=== PATIENT | female | born 1940 | race Caucasian/White ===

== ENCOUNTER → 2024-08-15 09:43 | Outpatient (BNVA) | payer MEDICARE, OTHER, SELFPAY | PROVIDERS: Family Provider Family Medicine; Referring Provider Nurse Practitioner Family; Visit Provider Internal Medicine | DX: E03.9 Hypothyroidism, unspecified; T78.40XA Allergy, unspecified, initial encounter; E11.22 Type 2 diabetes mellitus with diabetic chronic kidney disease; N18.30 Chronic kidney disease, stage 3 unspecified; X58.XXXA Exposure to other specified factors, initial encounter; Z79.84 Long term (current) use of oral hypoglycemic drugs; Z79.890 Hormone replacement therapy | CPT/HCPCS: 99204 ==

== ENCOUNTER 2024-11-20 10:27 | Outpatient (CLI) | payer MEDICARE, SELFPAY ==
--- NOTE | 2024-11-20 10:36 | USR_ITS ---
PROCEDURE INFORMATION: Exam: US Bilateral Noninvasive Physiologic Study of the Lower Extremity Arteries, Limited Exam date and time: 11/20/2024 10:32 AM Age: 84 years old Clinical indication: Pain; Leg, upper; Bilateral; Additional info: Pad TECHNIQUE: Imaging protocol: Bilateral Limited bilateral noninvasive physiologic studies of lower extremity arteries. Waveforms were obtained and evaluated. Images were documented and archived. Exam is limited. COMPARISON: No relevant prior studies available. FINDINGS: Right Ankle-Brachial Index: 1.15. Left Ankle-Brachial Index: 1.15. US/CV ankle brachial index 72161 IMPRESSION: No evidence of stenosis or occlusion in the lower extremity.
== END 2024-11-20 10:28 | disposition home or self-care (01) ==
LOC: RAD 10:30
PROVIDERS: Family Provider Family Medicine; PCP Family Medicine; Visit Provider Family Medicine
DX: I73.9 Peripheral vascular disease, unspecified (principal)
CPT/HCPCS: 93922

== ENCOUNTER 2024-11-29 08:58 | Outpatient (CLI) | payer MEDICARE, SELFPAY ==
[2024-11-29 10:14] LABS: Estmated Average Glucose 143; Hemoglobin A1C 6.6 % (4.0-6.0)
[2024-11-29 10:19] LABS: Creatinine Urine, Random 83 mg/dL (28-217); Microalbum Creatinine Ratio Ur 24 mg/dL (0-20); Microalbumin Random Urine 2 ug/dL (0-20)
[2024-11-29 10:43] LABS: Alanine Aminotransferase 10 U/L (0-33); Albumin Level 4.1 g/dL (3.5-5.2); Alkaline Phosphatase 53 U/L (35-105); Anion Gap 14.2 (5-19); Aspartate Amino Transferase 20 U/L (0-32); Blood Urea Nitrogen 24 mg/dL (8-23); Calcium 9.7 mg/dL (8.5-10.5); Carbon Dioxide 28 mmol/L (22-29); Chloride 101 mmol/L (98-107); Chol HDL Ratio 3.89 mg/dL (0.0-4.40); Cholesterol 206 mg/dL (0-200); Free T4 Free Thyroxine 1.16 ng/dL (0.82-1.77); Globulin 3.1 g/dL (1.3-4.6); Glucose 119 mg/dL (65-115); HDL Cholesterol 53 mg/dL (60-100); LDL Cholesterol Calculated 123 mg/dL (50-129); LDL HDL Ratio 2.32 RATIO (0.00-3.22); Osmolality Calculated 291 mOsm/kg (285-295); Potassium 5.2 mmol/L (3.5-5.1); Sodium 138 mmol/L (136-145); Thyroid Stimulating Hormone 3.62 uIU/mL (0.27-4.20); Total Bilirubin 0.4 mg/dL (0.15-1.2); Total Protein 7.2 g/dL (6.6-8.7); Triglycerides 150 mg/dL (0-150)
== END 2024-11-29 08:59 | disposition home or self-care (01) ==
LOC: LAB 09:01
PROVIDERS: Family Provider Family Medicine; PCP Family Medicine; Visit Provider Internal Medicine
DX: E11.9 Type 2 diabetes mellitus without complications (principal)
CPT/HCPCS: 36415; 80053; 80061; 82044; 83036; 84439; 84443

== ENCOUNTER → 2024-12-05 09:45 | Outpatient (BNVA) | payer MEDICARE, SELFPAY | PROVIDERS: Family Provider Family Medicine; Visit Provider Internal Medicine | DX: E11.9 Type 2 diabetes mellitus without complications (principal); E03.9 Hypothyroidism, unspecified; T78.40XA Allergy, unspecified, initial encounter | CPT/HCPCS: 99214 ==

== ENCOUNTER → 2025-02-11 11:54 | Outpatient (BNVA) | payer MEDICARE, SELFPAY | PROVIDERS: Family Provider Family Medicine; Visit Provider Internal Medicine | DX: E11.9 Type 2 diabetes mellitus without complications (principal); E03.9 Hypothyroidism, unspecified | CPT/HCPCS: 99214 ==

== ENCOUNTER → 2025-02-26 09:50 | Outpatient (BNVA) | payer MEDICARE, SELFPAY | PROVIDERS: Family Provider Family Medicine; PCP Family Medicine; Visit Provider Podiatrist Foot & Ankle Surgery | DX: E11.42 Type 2 diabetes mellitus with diabetic polyneuropathy (principal); L60.3 Nail dystrophy; I73.9 Peripheral vascular disease, unspecified; Z79.84 Long term (current) use of oral hypoglycemic drugs | CPT/HCPCS: 11721; 99204 ==

== ENCOUNTER → 2025-05-02 10:27 | Outpatient (BNVA) | payer MEDICARE, SELFPAY | PROVIDERS: Family Provider Family Medicine; PCP Family Medicine; Visit Provider Podiatrist Foot & Ankle Surgery | DX: E11.42 Type 2 diabetes mellitus with diabetic polyneuropathy (principal); L60.3 Nail dystrophy; I73.9 Peripheral vascular disease, unspecified; Z79.84 Long term (current) use of oral hypoglycemic drugs | CPT/HCPCS: 11721 ==

== ENCOUNTER 2025-05-25 16:54 | Emergency (ER) | payer MEDICARE, SELFPAY ==
--- OUTSIDE RECORDS SUMMARY | 2024-06-27 09:20 | XMS_ITS | Continuity of Care Document ---
Author Organization [facility] Address [address] [place] [address] Phone Care Team Providers Care Radiator Tester Name Role Phone Lucio Carlton MD Unavailable Unavailable Allergies, Adverse Reactions, Alerts Substance Reaction Status Criticality No Known Allergies Active No Inform ation Medications Medication Instructions Dosage Effective Dates (start - stop) Status Comments meclizine 25 mg tablet - Act winnie alprazolam 0.25 mg tablet - Active pioglitazone 15 mg tablet - Active tramadol 50 mg tablet - Acti ve diphenoxylate-atropine 2.5 mg-0.025 mg tablet - Active rosuvastatin 10 mg tablet - Active lisinopril 20 mg tablet - Ac tive levothyroxine 50 mcg tablet - Active duloxetine 30 mg capsule,delayed release - Active Trulicity 1.5 mg/0.5 mL subcutaneous pen injector inject (1.5MG) by subcutaneous route every week 1.5 MG - Active metformin 500 mg tablet take 1 tablet by oral route 2 times every day with morning and evening meals 500 MG - Active Procedures Procedure Date OCT optic nerve E&M est low complexity Fundus photos Gonioscopy E&M est low complexity [place] Mask Visual field extensive examination(s) Ap OCT optic nerve Refraction Pachymetry E&M est moderate complexity OCT optic nerve Refraction E&M New moderate complexity Results Test Name Date and Time Measure Units Reference Range Abnormal Flag Status Comments Panel Description: Not Available Final Image OPT-RNFL & Asymmetry Analysis Single E 1 Panel Description: Not Available Final Image OPT-RNFL & Asymmetry Analysis Single E 2 Panel Description: Not Available Final Image OPT-RNFL Single Exam Report- 1 Advance Directives Directive Yes / No Effective Date File Name No Information Encounters Encounter Description Practice Location Reason(s) For Visit Diagnoses Date Provider Providers Copied on Encounter E&M est low complexity [facility], [address], [place], [id number] , [place] tel: [phone] CAITLYN Cortes OHTN (chief complaint) Ocular hypertension, bilateralMeibomian gland dysfunction right eye, upper and lower eyelidsMeibomian gland dysfunction left eye, upper and lower eyelids Oct-1 4 Brandt Valdes. [facility], [place], [id number] , [place]. tel: [phone] Referring Provider: Lucio Vivar, [address] [place] [address], [address] . tel:[phone] E&M est low complexity [facility], [address], [place], [id number] , [place] tel: [phone] CAITLYN [place] OHTN (chief complaint) Ocular hypertension, bilateral Apr-2 4 Brandt Valdes. [address], [place], [id number] , [place]. tel: [phone] Referring Provider: Lucio Vivar, [facility] [place], [address] . tel:[phone] [place] Mask [facility], [address], [place], [id number] , [place] tel: [phone] VF24-2 SF (chief complaint) Ocular hypertension, bilateral Apr-0 4 Brandt Valdes. [address], [place], [id number] , [place]. tel: [phone] Referring Provider: Lucio Vivar, [address] [place] [address], [id number] . tel:[phone] E&M est moderate complexity [facility], [address] [place] [address], [id number] , [place] tel: [phone] CAITLYN Cortes diabetic eye exam (chief complaint) Type 2 diabetes mellitus without complicationsOcula r hypertension, bilateralPresbyopi aLong term (current) use of oral hypoglycemic drugsKeratoconjunc tivitis sicca, not specified as Sjogren's, bilateralMeibomian gland dysfunction right eye, upper and lower eyelidsMeibomian gland dysfunction left eye, upper and lower eyelids Nov- 4 Brandt Valdes. [address], [place], [id number] , [place]. tel: [phone] Referring Provider: Lucio Vivar, [address] [place] [address], [address] . tel:[phone] E&M New moderate complexity [facility], [address] [place] [address], [id number] , [place] tel: [phone] CAITLYN Cortes Ocular hypertension (chief complaint)ruben betic eye exam (chief complaint)Be aters (chief complaint)Dry eyes (chief complaint) Ocular hypertension, bilateralKeratocon junctivitis sicca, not specified as Sjogren's, bilateralPuckering of macula, bilateralPresbyopi aType 2 diabetes mellitus without complicationsLong term (current) use of oral hypoglycemic drugs 3 Sharad Winchester. [address], [place], [id number] , [place]. tel: [phone] Referring Provider: Ranulfo Ribera, [address] [place] [address], [address] . tel:[phone] Family History Family Member Type Diagnosis Age At Onset No Information Immunizations Vaccine Date Status Comments Pneumo (2 yrs or older)(PPV) administered Source: Other Provider Payers Payer name Insurance type Covered alliance party ID Vannesa corral(susie Baldwin [facility] HMO Cap (TEA Premier) CI [id number] Social History Type Description Quantity Date Captured Comments Alcohol Use Details Unknown Caffeine Use Details Unknown Tobacco Use Status Current non-smoker Smoking Status Never smoker Sex Female Chief Complaint And Reason For Visit From encounter dated '06/27/2024 14:20'. OHTN (chief complaint). Description: The 83 year old patient presents for evaluation of OHTN in theOU. Pt is here today for FOL/RNFL. Pt states no changes in VA since last visit. Pt states BS has been stable. Reason For Referral Reason For Referral No Information History Of Present Illness Encounter Date Complaint History Of Prese nt Illness OHTN The 83 year old patient presents for evaluation of OHTN in the OU. Pt is here today for FOL/RNFL. Pt states no changes in VA since last visit. Pt states BS has been stable. OHTN The 83 year old patient presents for evaluation of OHTN in the OU. Pt is here today for FOL/IOP/FP DISC. Pt states she checks BS regularly and it is stable. Pt states VA OU is stable. Pt denies Pain or discomfort. Pt states no blurry VA. Pt reports she is not on any gtts. VF24-2 SF The 83 year old patient presents for evaluation of VF24-2 SF in the OU. diabetic eye exam The 83 year ol d patient presents for evaluation of diabetic eye exam / OHT/ macula pucker OU. Patient reports vision is stable both near and far. Denies: eye pain, or flashes. Floaters longstanding intermittent with no changes. She confirms taking Latanoprost QHS OU.Age (>70): + Race: CaucasianFamily Hx: Mother DM 2 Thin CCT (<500): 573 / 580Low DBP (<70): 120/70 ? av Sleep Apnea: none BMI > 40: Hx of Migraines: none Hx of glaucoma: OHNT x 12 yrs Dry eyes The patient is p resent for evaluation of Dry eyes in the OU. Pt states OU feel dry, gritty. Pt admits was told she has dry eyes and always feels something in her eyes/no tears. Ocular hypertension The patient is present for evaluation of Ocular hypertension in the OU. The symptom is constant. Patient denies: decrease in peripheral vision, eye pain and drop problems and is using correctly. Pt has been using Lat x 5 yrs in both eyes. Pt states VA is pretty good/clear, has no VA concerns, S/P yag OU.... Verbal order for RNFL OU. diabetic eye exam The patient is present for evaluation of diabetic eye exam in the OU. NIDDM, on meds x 20 yrs, LA1C was 6.5 about few wks ago, BS stays around 120. Floaters The patient is p resent for evaluation of Floaters in the OU. It started about 10 year(s) ago. It occurs 2 times a week. The symptom is frequent. The condition is not any better. Patient denies: flashes. Pt admits sees the floaters regularly. Functional Status Date Functional Assessmen t No Information Instructions Date Instruction Additional Infor alexandria Impression/Plan Related to Meibo eb gland dysfunction left eye, upper and lower eyelids Impression/Plan Related to Meibo eb gland dysfunction right eye, upper and lower eyelids Impression/Plan Related to Ocula r hypertension, bilateral Impression/Plan Related to Ocula r hypertension, bilateral RTO A/S with Dr. Carlton Related t o Ocular hypertension, bilateral Impression/Plan Related to Ocula r hypertension, bilateral Impression/Plan Related to Presb yopia Impression/Plan Related to Meibo eb gland dysfunction left eye, upper and lower eyelids Impression/Plan Related to Meibo eb gland dysfunction right eye, upper and lower eyelids Impression/Plan Related to Kerat oconjunctivitis sicca, not specified as Sjogren's, bilateral Impression/Plan Related to Ocula r hypertension, bilateral Impression/Plan Related to halfway (current) use of oral hypoglycemic drugs Impression/Plan Related to Type 2 diabetes mellitus without complications Return in 1 year CEE /RNFL with Dr. Orourke. 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 assessment Meibomian gland dysfunction righ t eye, upper and lower eyelids impression Meibomian gland dysf unction right eye, upper and lower eyelids: H02.88A. assessment Meibomian gland dysfunction left eye, upper and lower eyelids impression Meibomian gland dysf unction left eye, upper and lower eyelids: H02.88B. Patient Care Teams Name Effective Dates (start - stop) Status Members No Information
--- OUTSIDE RECORDS SUMMARY | 2025-05-25 16:59 | XMS_ITS | Encounter Summary ---
Author Organization [facility] Address [address] [place] [address] Care Team Providers Care Prototyper Name Role Phone Gigi Garza MD Primary Care Provider [phone] Encounter Details Date Type Department Care Team (Latest Contact Info) Description 01/31/2002 Outpatient Historical [facility] Medicine [address] [address] Colin Marquez DO NO ADDRESS ON FILE ACUTE URI NOS (Primary Dx); TENORIO'S PALSY Social History Tobacco Use Types Packs/Day Years Used Date Smoking Tobacco: Never Assessed Comments Unknown Sex and Gender Information Value Date Recorded Sex Assigned at Not on file Legal Sex Female 5:42 AM RADAR TESTER Gender Identity Not on file Sexual Orientation Not on file documented as of this encounter Plan of Treatment Not on file documented as of this encounter Visit Diagnoses Diagnosis Acute upper respiratory infections of unspecified site- Primary Tenorio's palsy documented in this encounter Additional Health Concerns Infection Onset Date Last Indicated Resolved Time R/O COVID-19 06/23/2020 06/23/2020 06/23/2020 1:54 PM CDT COVID-19 06/23/2020 06/23/2020 07/23/2020 8:08 PM RADAR TESTER documented as of this encounter Care Teams Prototyper Relationship Specialty Start Date End Date Gigi Garza MD [address] [address] PCP - General Family Practice 06/11/16 documented as of this encounter
--- OUTSIDE RECORDS SUMMARY | 2025-05-25 16:59 | XMS_ITS | Encounter Summary ---
Author Organization [facility] Address [address] [place] [address] Care Team Providers Care Assembler Plastic Boat Name Role Phone Gigi Garza MD Primary Care Provider [phone] Encounter Details Date Type Department Care Team (Late st Contact Info) Description 06/11/2013 Ancillary Orders [facility] Medicine [address] [address] Lorena Escobar MD [address] [address] Back pain (Primary Dx) Social History Tobacco Use Types Packs/Day Years Used Date Smoking Tobacco: Never Alcohol Use Standard Drinks/Week Comments No 0 (1 standard drink = 0.6 oz pur e alcohol) Comments No Sex and Gender Information Value Date Recorded Sex Assigned at Not on file Legal Sex Female 5:42 AM ORACLE HRMS CONSULTANT Gender Identity Not on file Sexual Orientation Not on file Occupation Industry Job Start Date Job End Date Not on file Not on file Not on file Not on file documented as of this encounter Plan of Treatment Not on file documented as of this encounter Results * XR THORACIC SPINE 3 VW (06/11/2013 4:00 PM CDT) Anatomical Region Laterality Modality Spine Computed Radiogr aphy 06/11/2013 3:54 PM CDT Narrative 06/12/2013 9:07 AM CDT PROCEDURE XR THORACIC SPINE, three views 11 June 2013 DESCRIPTION AP and lateral thoracic spine views and collimated lateral swimmer projection of the cervical thoracic junction show osteophyte at multiple levels throughout the thoracic spine, more pronounced on the right in the mid and lower dorsal levels. Pedicles and paraspinal lines are maintained and no wedged compression fracture of the spine is seen. There is mild aortic tortuosity noted. There are surgical clips in the right upper quadrant of the abdomen, likely status post cholecystectomy. The vertebral bodies are not optimally profiled on the swimmer view, however no loss of alignment is seen. IMPRESSION 1. osteoarthritis 2. no acute fracture or loss of alignment seen Procedure Note Raymond Pardo MD - 06/12/2013 PROCEDURE XR THORACIC SPINE, three views 11 June 2013 DESCRIPTION AP and lateral thoracic spine views and collimated lateral swimmer projection of the cervical thoracic junction show osteophyte at multiple levels throughout the thoracic spine, more pronounced on the right in the mid and lower dorsal levels. Pedicles and paraspinal lines are maintained and no wedged compression fracture of the spine is seen. There is mild aortic tortuosity noted. There are surgical clips in the right upper quadrant of the abdomen, likely status post cholecystectomy. The vertebral bodies are not optimally profiled on the swimmer view, however no loss of alignment is seen. IMPRESSION 1. osteoarthritis 2. no acute fracture or loss of alignment seen Lorena Escobar MD DIAGNOSTIC IMAGING ORDERABL ES Final Result documented in this encounter Visit Diagnoses Diagnosis Back pain Backache, unspecified Back pain- Primary Backache, unspecified documented in this encounter Additional Health Concerns Infection Onset Date Last Indicated Resolved Time R/O COVID-19 06/23/2020 06/23/2020 06/23/2020 1:54 PM CDT COVID-19 06/23/2020 06/23/2020 07/23/2020 8:08 PM ORACLE HRMS CONSULTANT documented as of this encounter Care Teams Assembler Plastic Boat Relationship Specialty Start Date End Date Gigi Garza MD [address] [facility] [address] [place] [address] PCP - General Family Practice 06/11/16 documented as of this encounter
--- OUTSIDE RECORDS SUMMARY | 2025-05-25 16:59 | XMS_ITS | Encounter Summary ---
Author Organization [facility] Address [address] [facility] Attn: Epic Prelude ADT NEL[place] SALGUERO [address] Care Team Providers Care Anesthesiology Technologist Name Role Phone Gigi Garza MD Primary Care Provider [phone] [phone] Encounter Details Date Type Department Care Team (Late st Contact Info) Description 04/09/2002 Outpatient Historical Colin Marquez DO NO ADDRESS ON FILE Social History Tobacco Use Types Packs/Day Years Used Date Smoking Tobacco: Never Assessed Comments Unknown Sex and Gender Information Value Date Recorded Sex Assigned at Not on file Legal Sex Female 5:42 AM LEAD CASHIER Gender Identity Not on file Sexual Orientation Not on file documented as of this encounter Plan of Treatment Not on file documented as of this encounter Visit Diagnoses Not on filedocumented in this encounter Additional Health Concerns Infection Onset Date Last Indicated Resolved Time R/O COVID-19 06/23/2020 06/23/2020 06/23/2020 1:54 PM CDT COVID-19 06/23/2020 06/23/2020 07/23/2020 8:08 PM LEAD CASHIER documented as of this encounter Care Teams Anesthesiology Technologist Relationship Specialty Start Date End Date Gigi Garza MD [address] [facility] [address] [place] [address] PCP - General Family Practice 06/11/16 documented as of this encounter
--- OUTSIDE RECORDS SUMMARY | 2025-05-25 16:59 | XMS_ITS | Encounter Summary ---
Author Organization [facility] Address [address] [place] [address] Care Team Providers Care French Cord Binder Name Role Phone Gigi Garza MD Primary Care Provider [phone] [phone] Encounter Details Date Type Department Care Team (Late Contact Info) Description 05/21/2025 External Device Data [facility] ABSTRACTION Provider, Abstract NO ADDRESS ON FILE Social History Tobacco Use Types Packs/Day Years Used Date Smoking Tobacco: Former Cigarettes Smokeless Tobacco: Never Comments:Quit smoking: Quit smoking in her 30's Alcohol Use Standard Drinks/Week Comments No 0 (1 standard drink = 0.6 oz pur e alcohol) Financial Resource Strain Answer Date R ecorded How hard is it for you to pa y for the very basics like food, housing, medical care, and heating? Not hard at all 04/07/2022 Food Insecurity Answer Date Recorded In the past 12 months, have you worried that your food would run out before you had money to buy more? Never true 04/07/2022 In the past 12 months, did y ou run out of food and didn't have money to buy more? Never true 04/07/2022 Transportation Needs Answer Date Record ed In the past 12 months, has l ack of transportation kept you from medical appointments or from getting medications? No 04/07/2022 Lack of Transportation (Non-Medical) Not on file 04/07/2022 Comments No Sex and Gender Information Value Date Recorded Sex Assigned at Not on file Legal Sex Female 1:34 PM FIRE RANGE TECHNICIAN Gender Identity Not on file Sexual Orientation Not on file documented as of this encounter Plan of Treatment Upcoming Encounters Date Type Department Care Team (Late Contact Info) Description 06/21/2025 10:40 AM CDT Office Visit [facility] [place] [address] [address] Gigi Garza MD [address] [address] documented as of this encounter Visit Diagnoses Not on filedocumented in this encounter Care Teams French Cord Binder Relationship Specialty Start Date End Date Gigi Garza MD [address] [address] PCP - General Family Practice 07/11/24 documented as of this encounter
--- OUTSIDE RECORDS SUMMARY | 2025-05-25 16:59 | XMS_ITS | Encounter Summary ---
Author Organization [facility] Address [address] [place] [address] Care Team Providers Care Assembly Lead Person Name Role Phone Gigi Garza MD Primary Care Provider + [phone] Encounter Details Date Type Department Care Team (Latest Contact Info) Description 05/19/2001 Outpatient Historical [facility] Family Medicine [place] [address] [address] Gurpreet Kelly MD [address] [address] Acute upper respiratory infections of unspecified site (Primary Dx) Social History Tobacco Use Types Packs/Day Years Used Date Smoking Tobacco: Never Assessed Comments Unknown Sex and Gender Information Value Date Recorded Sex Assigned at Not on file Legal Sex Female 5:42 AM TAX EXAMINING TECHNICIAN Gender Identity Not on file Sexual Orientation Not on file documented as of this encounter Plan of Treatment Not on file documented as of this encounter Visit Diagnoses Diagnosis Acute upper respiratory infections of unspecified site- Primary documented in this encounter Additional Health Concerns Infection Onset Date Last Indicated Resolved Time R/O COVID-19 06/23/2020 06/23/2020 06/23/2020 1:54 PM CDT COVID-19 06/23/2020 06/23/2020 07/23/2020 8:08 PM TAX EXAMINING TECHNICIAN documented as of this encounter Care Teams Assembly Lead Person Relationship Specialty Start Date End Date Gigi Garza MD [address] [facility] [address] [place] [address] PCP - General Family Practice 06/11/16 documented as of this encounter
--- OUTSIDE RECORDS SUMMARY | 2025-05-25 16:59 | XMS_ITS | Encounter Summary ---
Author Organization [facility] Address [address] [place] [address] Care Team Providers Care Aged Or Disabled Carer Name Role Phone Gigi Garza MD Primary Care Provider [phone] [phone] Encounter Details Date Type Department Care Team (Latest Contact Info) Description 08/13/2016 Ancillary Orders [facility] Orthopedics Orthopedic [facility] [address] [place] [address] Jose Guadalupe Green MD NO ADDRESS ON FILE Bicipital tendonitis of right shoulder Social History Tobacco Use Types Packs/Day Years Used Date Smoking Tobacco: Never Smokeless Tobacco: Never Alcohol Use Standard Drinks/Week Comments No 0 (1 standard drink = 0.6 oz pur e alcohol) Comments No Sex and Gender Information Value Date Recorded Sex Assigned at Not on file Legal Sex Female 5:42 AM CUSTOMER ACCOUNT REPRESENTATIVE Gender Identity Not on file Sexual Orientation Not on file Occupation Industry Job Start Date Job End Date Not on file Not on file Not on file Not on file documented as of this encounter Plan of Treatment Not on file documented as of this encounter Results * XR SHOULDER 2+ VW RIGHT (08/13/2016 9:11 AM CUSTOMER ACCOUNT REPRESENTATIVE) Anatomical Region Laterality Modality Upper Extremity Computed Radiogr aphy Narrative 08/19/2016 5:23 PM CUSTOMER ACCOUNT REPRESENTATIVE 3 view x-ray series right shoulder demonstrates narrowing of the subacromial space with moderate acromioclavicular joint space narrowing. Type II acromion on outlet view. Cortical hypertrophy at the deltoid insertion to the proximal right humerus on the AP view. us Jose Guadalupe Green MD DIAGNOSTIC IMAGING ORDERABLE S Final Result documented in this encounter Visit Diagnoses Diagnosis Bicipital tendonitis of right shoulder documented in this encounter Additional Health Concerns Infection Onset Date Last Indicated Resolved Time R/O COVID-19 06/23/2020 06/23/2020 06/23/2020 1:54 PM CDT COVID-19 06/23/2020 06/23/2020 07/23/2020 8:08 PM CUSTOMER ACCOUNT REPRESENTATIVE documented as of this encounter Care Teams Aged Or Disabled Carer Relationship Specialty Start Date End Date Gigi Garza MD [address] [address] PCP - General Family Practice 06/11/16 documented as of this encounter
--- OUTSIDE RECORDS SUMMARY | 2025-05-25 16:59 | XMS_ITS | Encounter Summary ---
Author Organization [facility] Address [address] [place] [address] Care Team Providers Care Direct Mail Clerk Name Role Phone Gigi Garza MD Primary Care Provider +1 [phone] Encounter Details Date Type Department Care Team (Latest Contact Info) Description 02/16/2017 Ancillary Orders [facility] Medicine [address] [address] Gigi Garza MD [address] [address] Primary osteoarthritis of right knee Social History Tobacco Use Types Packs/Day Years Used Date Smoking Tobacco: Never Smokeless Tobacco: Never Alcohol Use Standard Drinks/Week Comments No 0 (1 standard drink = 0.6 oz pur e alcohol) Comments No Sex and Gender Information Value Date Recorded Sex Assigned at Not on file Legal Sex Female 5:42 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 Exam: XR KNEE 3 VW BILAT Date/Time of Exam: 02/16/2017 3:52 PM Reason For Exam: Primary osteoarthritis of right knee. Findings: Markedly narrowed lateral joint compartments of both knees with moderate grade bony spurring of both knees most prominently demonstrated of right knee. No apparent acute osseous injury or subluxation of either knee. Soft tissues nonspecific. IMPRESSION: Advanced degenerative change of both knees, right greater than left. Narrative Procedure Note Jaqueline Elias MD - 02/17/2017 IMPRESSION IMPRESSION: Please see below. Exam: XR KNEE 3 VW BILAT Date/Time of Exam: 02/16/2017 3:52 PM Reason For Exam: Primary osteoarthritis of right knee. Findings: Markedly narrowed lateral joint compartments of both knees with moderate grade bony spurring of both knees most prominently demonstrated of right knee. No apparent acute osseous injury or subluxation of either knee. Soft tissues nonspecific. IMPRESSION: Advanced degenerative change of both knees, right greater than left. Gigi Garza MD DIAGNOSTIC IMAGING ORDERA BLES Final Result documented in this encounter Visit Diagnoses Diagnosis Primary osteoarthritis of right knee Primary localized osteoarthrosis, lower leg Primary osteoarthritis of right knee Primary localized osteoarthrosis, lower leg documented in this encounter Additional Health Concerns Infection Onset Date Last Indicated Resolved Time R/O COVID-19 06/23/2020 06/23/2020 06/23/2020 1:54 PM CDT COVID-19 06/23/2020 06/23/2020 07/23/2020 8:08 PM LAPPING MACHINE OPERATOR documented as of this encounter Care Teams Direct Mail Clerk Relationship Specialty Start Date End Date Gigi Garza MD [address] [phone] PCP - General Family Practice 06/11/16 documented as of this encounter
--- OUTSIDE RECORDS SUMMARY | 2025-05-25 16:59 | XMS_ITS | Encounter Summary ---
Author Organization [facility] Address [address] [place] [address] Care Team Providers Care Electrical Parts Reconditioner Name Role Phone Gigi Garza MD Primary Care Provider +1 [phone] Encounter Details Date Type Department Care Team (Latest Contact Info) Description 06/26/2001 Outpatient Historical [facility] [place] [address] [phone] Gurpreet Kelly MD [address] [address] Acute frontal sinusitis (Primary Dx); Acute bronchitis Social History Tobacco Use Types Packs/Day Years Used Date Smoking Tobacco: Never Assessed Comments Unknown Sex and Gender Information Value Date Recorded Sex Assigned at Not on file Legal Sex Female 5:42 AM CLINICAL ADMINISTRATOR Gender Identity Not on file Sexual Orientation Not on file documented as of this encounter Plan of Treatment Not on file documented as of this encounter Visit Diagnoses Diagnosis Acute frontal sinusitis- Primary Acute bronchitis documented in this encounter Additional Health Concerns Infection Onset Date Last Indicated Resolved Time R/O COVID-19 06/23/2020 06/23/2020 06/23/2020 1:54 PM CDT COVID-19 06/23/2020 06/23/2020 07/23/2020 8:08 PM CLINICAL ADMINISTRATOR documented as of this encounter Care Teams Electrical Parts Reconditioner Relationship Specialty Start Date End Date Gigi Garza MD [address] [phone] PCP - General Family Practice 06/11/16 documented as of this encounter
--- OUTSIDE RECORDS SUMMARY | 2025-05-25 16:59 | XMS_ITS | Encounter Summary ---
Author Organization [facility] Address [address] [place] [address] Care Team Providers Care Director Of Scientific Research Name Role Phone Gigi Garza MD Primary Care Provider +1 [phone] Reason for Referral * Outpatient Services (Routine) - Closed Specialty Diagnoses / Procedures Referred By Miguel Ángel perez Referred To Contact Diagnoses Screening mammogram Procedures MAMMO SCREENING BILAT Alejo Mathur MD NO ADDRESS ON FILE Referral ID Status Reason Start Date Expiration Date Visits Re quested Visits Authorized [id number] Closed 08/24/2010 02/20/2011 1 1 LE CONTROL CHENILLER Encounter Details Date Type Department Care Team (Late st Contact Info) Description 08/24/2010 Ancillary Orders [facility] Imaging External Read [address] [place] [address] Alejo Mathur MD NO ADDRESS ON FILE Screening mammogram Social History Tobacco Use Types Packs/Day Years Used Date Smoking Tobacco: Never Alcohol Use Standard Drinks/Week Comments No 0 (1 standard drink = 0.6 oz pur e alcohol) Comments No Sex and Gender Information Value Date Recorded Sex Assigned at Not on file Legal Sex Female 5:42 AM NEEDLE CONTROL CHENILLER Gender Identity Not on file Sexual Orientation Not on file documented as of this encounter Plan of Treatment Not on file documented as of this encounter Results * MAMMO SCREENING BILAT (08/24/2010 1:58 PM NEEDLE CONTROL CHENILLER) Anatomical Region Laterality Modality Breast Bilateral Mammography Addenda Addendum by Saadia Gallo MD on 09/15/2010 8:04 AM NEEDLE CONTROL CHENILLER ADDENDUM TO SCREENING MAMMOGRAM OF 08/20/10: We now have the patient's prior exams and multiple prior exams dating back to 09/09/06 were compared with the screening study of 08/20/10. The asymmetric tissue and calcifications, bilaterally, appear to be stable. Yearly exams are recommended. *Addendum dictated on 09/14/10 ANDRZEJ/cathie Narrative 09/01/2010 8:44 AM NEEDLE CONTROL CHENILLER BILATERAL SCREENING MAMMOGRAM WITH CAD: No family history of breast cancer and no breast complaints. The patient has had previous films two years ago in [place], [place]. She had an excisional biopsy on the left in 1984 which was benign, and that was marked with a scar marker. Small amount of tissue is present bilaterally with areas of scattered benign-type calcifications and benign-type nodularity. This mammogram was also analyzed by the Computer Aided Detection System (CAD), R2 ImageChecker, Version 3.1. SUMMARY: While there are no suspicious-appearing findings on this study, it would be reasonable to attempt to obtain the patient's prior films for comparison purposes. An addendum would be issued. MAJOR/hector Procedure Note Vance Mcdonald MD / Saadia Gallo MD - 09/15/2010 BILATERAL SCREENING MAMMOGRAM WITH CAD: No family history of breast cancer and no breast complaints. The patienthas had previous films two years ago in [place], [place]. She had anexcisional biopsy on the left in 1984 which was benign, and that wasmarked with a scar marker. Small amount of tissue is present bilaterally with areas of scatteredbenign-type calcifications and benign-type nodularity. This mammogram was also analyzed by the Computer Aided Detection System(CAD), R2 ImageChecker, Version 3.1. SUMMARY: While there are no suspicious-appearing findings on this study, it wouldbe reasonable to attempt to obtain the patient's prior films forcomparison purposes. An addendum would be issued. MAJOR/hector us Alejo Mathur MD MAMMO ORDERABLES Edited Re sult - Final documented in this encounter Visit Diagnoses Diagnosis Screening mammogram Other screening mammogram documented in this encounter Additional Health Concerns Infection Onset Date Last Indicated Resolved Time R/O COVID-19 06/23/2020 06/23/2020 06/23/2020 1:54 PM CDT COVID-19 06/23/2020 06/23/2020 07/23/2020 8:08 PM NEEDLE CONTROL CHENILLER documented as of this encounter Care Teams Director Of Scientific Research Relationship Specialty Start Date End Date Gigi Garza MD [address] [phone] PCP - General Family Practice 06/11/16 documented as of this encounter
--- OUTSIDE RECORDS SUMMARY | 2025-05-25 16:59 | XMS_ITS | Encounter Summary ---
Author Organization [facility] Address [address] [place] [address] Care Team Providers Care Servicenow Administrator Developer Name Role Phone Gigi Garza MD Primary Care Provider [phone] [phone] Encounter Details Date Type Department Care Team (Latest Contact Info) Description 03/21/2002 Outpatient Historical [address] [address] Colin Marquez DO NO ADDRESS ON FILE DISACCHARIDASE DEF/MALAB (Primary Dx); HYPERLIPIDEMIA NEC/NOS Social History Tobacco Use Types Packs/Day Years Used Date Smoking Tobacco: Never Assessed Comments Unknown Sex and Gender Information Value Date Recorded Sex Assigned at Not on file 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 Sex Female 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 CLERK Gender Identity Not on file Sexual Orientation Not on file documented as of this encounter Plan of Treatment Not on file documented as of this encounter Visit Diagnoses Diagnosis 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
--- OUTSIDE RECORDS SUMMARY | 2025-05-25 16:59 | XMS_ITS | Encounter Summary ---
Author Organization [facility] Address [address] [place] [address] Care Team Providers Care Rewinder Name Role Phone Gigi Garza MD Primary Care Provider [phone] [phone] Reason for Referral * Outpatient Services (Routine) - Closed Specialty Diagnoses / Procedures Referred By Contac t Referred To Contact Radiology Diagnoses Other screening mammogram Procedures MAMMO DIGITIZED STUDY Alejo Mathur MD NO ADDRESS ON FILE [facility] [address] [facility] [address] [place] [address] Phone: tel: fax: Referral ID Status Reason Start Date Expiration Date Visits Re quested Visits Authorized [id number] Closed 09/13/2012 10/14/2013 1 1 APPLICATIONS MANAGER Encounter Details Date Type Department Care Team (Late st Contact Info) Description 09/13/2012 Ancillary Orders [facility] [place] 104 [facility] [address] [place] [address] Alejo Mathur MD NO ADDRESS ON FILE Breast CA Screening Social History Tobacco Use Types Packs/Day Years Used Date Smoking Tobacco: Never Alcohol Use Standard Drinks/Week Comments No 0 (1 standard drink = 0.6 oz pur e alcohol) Comments No Sex and Gender Information Value Date Recorded Sex Assigned at Not on file Legal Sex Female 5:42 AM CASH APPLICATIONS MANAGER Gender Identity Not on file Sexual Orientation Not on file documented as of this encounter Plan of Treatment Not on file documented as of this encounter Results * MAMMO DIGITIZED STUDY (09/09/2006 2:59 PM CASH APPLICATIONS MANAGER) Narrative Cynthia Dumont, RT - 09/13/2012 2:59 PM CASH APPLICATIONS MANAGER Order information only. Exam was auto-finalized. Procedure Note Cynthia Dumont, RT - 09/13/2012 Order information only. Exam was auto-finalized. Alejo Mathur MD DIAGNOSTIC IMAGING ORDERAB LES Final Result documented in this encounter Visit Diagnoses Diagnosis Breast CA Screening Other screening mammogram Breast CA Screening Other screening mammogram documented in this encounter Additional Health Concerns Infection Onset Date Last Indicated Resolved Time R/O COVID-19 06/23/2020 06/23/2020 06/23/2020 1:54 PM CDT COVID-19 06/23/2020 06/23/2020 07/23/2020 8:08 PM CASH APPLICATIONS MANAGER documented as of this encounter Care Teams Rewinder Relationship Specialty Start Date End Date Gigi Garza MD [address] [facility] [address] [place] [phone] PCP - General Family Practice 06/11/16 documented as of this encounter
--- OUTSIDE RECORDS SUMMARY | 2025-05-25 16:59 | XMS_ITS | Encounter Summary ---
Author Organization [facility] Address [address] [place] [address] Care Team Providers Care Rn Registry Name Role Phone Gigi Garza MD Primary Care Provider [phone] [phone] Encounter Details Date Type Department Care Team (Latest Contact Info) Description 01/19/2002 Outpatient Historical [facility] Medicine [address] [address] Colin Marquez DO NO ADDRESS ON FILE HEADACHE (Primary Dx); Skin sensation disturb; ANXIETY STATE NOS Social History Tobacco Use Types Packs/Day Years Used Date Smoking Tobacco: Never Assessed Comments Unknown Sex and Gender Information Value Date Recorded Sex Assigned at Not on file Legal Sex Female 5:42 AM 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 Gender Identity Not on file Sexual Orientation Not on file documented as of this encounter Plan of Treatment Not on file documented as of this encounter Visit Diagnoses Diagnosis Headache(784.0)- Primary Headache Skin sensation disturb Disturbance of skin sensation Anxiety state, unspecified documented in this encounter Additional Health Concerns Infection Onset Date Last Indicated Resolved Time R/O COVID-19 06/23/2020 06/23/2020 06/23/2020 1:54 PM CDT COVID-19 06/23/2020 06/23/2020 07/23/2020 8:08 PM 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 MACHINE OPERATOR documented as of this encounter Care Teams Rn Registry Relationship Specialty Start Date End Date Gigi Garza MD [address] [phone] PCP - General Family Practice 06/11/16 documented as of this encounter
--- OUTSIDE RECORDS SUMMARY | 2025-05-25 16:59 | XMS_ITS | Encounter Summary ---
Author Organization [facility] Address [address] [place] [address] Care Team Providers Care Babcock Tester Name Role Phone Gigi Garza MD Primary Care Provider +1 [phone] Encounter Details Date Type Department Care Team (Latest Contact Info) Description 04/04/2002 Outpatient Historical [facility] Medicine [address] [address] Colin Marquez DO NO ADDRESS ON FILE CHEST PAIN NOS (Primary Dx); Pain in limb; HYPERLIPIDEMIA NEC/NOS Social History Tobacco Use Types Packs/Day Years Used Date Smoking Tobacco: Never Assessed Comments Unknown Sex and Gender Information Value Date Recorded Sex Assigned at Not on file Legal Sex Female 5:42 AM CHEMICAL DETECTION EXPERT Gender Identity Not on file Sexual Orientation Not on file documented as of this encounter Plan of Treatment Not on file documented as of this encounter Visit Diagnoses Diagnosis Chest pain, unspecified- Primary Pain in limb Pain in soft tissues of limb Other and unspecified hyperlipidemia documented in this encounter Additional Health Concerns Infection Onset Date Last Indicated Resolved Time R/O COVID-19 06/23/2020 06/23/2020 06/23/2020 1:54 PM CDT COVID-19 06/23/2020 06/23/2020 07/23/2020 8:08 PM CHEMICAL DETECTION EXPERT documented as of this encounter Care Teams Babcock Tester Relationship Specialty Start Date End Date Gigi Garza MD [address] [phone] PCP - General Family Practice 06/11/16 documented as of this encounter
--- OUTSIDE RECORDS SUMMARY | 2025-05-25 16:59 | XMS_ITS | Encounter Summary ---
Author Organization [facility] Address [address] [place] [address] Care Team Providers Care Cabin Crew Name Role Phone Gigi Garza MD Primary Care Provider +1 [phone] Encounter Details Date Type Department Care Team (Latest Contact Info) Description 06/16/2001 Outpatient Historical [facility] Medicine [address] [address] Fozia Holland MD NO ADDRESS ON FILE Acute bronchitis (Primary Dx) Social History Tobacco Use Types Packs/Day Years Used Date Smoking Tobacco: Never Assessed Comments Unknown Sex and Gender Information Value Date Recorded Sex Assigned at Not on file Legal Sex Female 5:42 AM CARBIDE OPERATOR Gender Identity Not on file Sexual Orientation Not on file documented as of this encounter Plan of Treatment Not on file documented as of this encounter Visit Diagnoses Diagnosis Acute bronchitis- Primary documented in this encounter Additional Health Concerns Infection Onset Date Last Indicated Resolved Time R/O COVID-19 06/23/2020 06/23/2020 06/23/2020 1:54 PM CDT COVID-19 06/23/2020 06/23/2020 07/23/2020 8:08 PM CARBIDE OPERATOR documented as of this encounter Care Teams Cabin Crew Relationship Specialty Start Date End Date Gigi Garza MD [address] [phone] PCP - General Family Practice 06/11/16 documented as of this encounter
--- OUTSIDE RECORDS SUMMARY | 2025-05-25 16:59 | XMS_ITS | Encounter Summary ---
Author Organization [facility] Address [address] [place] [address] Care Team Providers Care Sign Builder Supervisor Name Role Phone Gigi Garza MD Primary Care Provider +1 -[phone] Encounter Details Date Type Department Care Team (Latest Contact Info) Description 04/25/2002 Outpatient Historical [facility] Medicine [place] [address] [address] Colin Marquez DO NO ADDRESS ON FILE HYPERTENSION NOS (Primary Dx); DIABETES UNCOMPL ADULT-TYPE II ([facility]) Social History Tobacco Use Types Packs/Day Years Used Date Smoking Tobacco: Never Assessed Comments Unknown Sex and Gender Information Value Date Recorded Sex Assigned at Not on file Legal Sex Female 5:42 AM SALESPERSON FLORIST SUPPLIES Gender Identity Not on file Sexual Orientation Not on file documented as of this encounter Plan of Treatment Not on file documented as of this encounter Visit Diagnoses Diagnosis Unspecified essential hypertension- Primary Type II or unspecified type diabetes mellitus without mention of complication, not stated as uncontrolled documented in this encounter Additional Health Concerns Infection Onset Date Last Indicated Resolved Time R/O COVID-19 06/23/2020 06/23/2020 06/23/2020 1:54 PM CDT COVID-19 06/23/2020 06/23/2020 07/23/2020 8:08 PM SALESPERSON FLORIST SUPPLIES documented as of this encounter Care Teams Sign Builder Supervisor Relationship Specialty Start Date End Date Gigi Garza MD [address] [phone] PCP - General Family Practice 06/11/16 documented as of this encounter
--- OUTSIDE RECORDS SUMMARY | 2025-05-25 16:59 | XMS_ITS | Encounter Summary ---
Author Organization [facility] Address [address] [place] [address] Care Team Providers Care Mobile Home Lot Utility Worker Name Role Phone Gigi Garza MD Primary Care Provider +1 [phone] Encounter Details Date Type Department Care Team (Latest Contact Info) Description 02/09/2002 Outpatient Historical [facility] Medicine [address] [address] Colin Marquez DO NO ADDRESS ON FILE TENORIO'S PALSY (Primary Dx); Skin sensation disturb; OTALGIA NOS Social History Tobacco Use Types Packs/Day Years Used Date Smoking Tobacco: Never Assessed Comments Unknown Sex and Gender Information Value Date Recorded Sex Assigned at Not on file Legal Sex Female 5:42 AM TURNING LATHE TENDER Gender Identity Not on file Sexual Orientation Not on file documented as of this encounter Plan of Treatment Not on file documented as of this encounter Visit Diagnoses Diagnosis Tenorio's palsy- Primary Skin sensation disturb Disturbance of skin sensation Otalgia, unspecified documented in this encounter Additional Health Concerns Infection Onset Date Last Indicated Resolved Time R/O COVID-19 06/23/2020 06/23/2020 06/23/2020 1:54 PM CDT COVID-19 06/23/2020 06/23/2020 07/23/2020 8:08 PM TURNING LATHE TENDER documented as of this encounter Care Teams Mobile Home Lot Utility Worker Relationship Specialty Start Date End Date Gigi Garza MD [address] [phone] PCP - General Family Practice 06/11/16 documented as of this encounter
--- OUTSIDE RECORDS SUMMARY | 2025-05-25 16:59 | XMS_ITS | Clinical Summary ---
Author Organization [facility] Address [address] 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 acidophilus/L. rhamnosus (PROBIOTIC ORAL) Take 1 Capsule by mouth daily. 06/22/20 19 Active chwkxjf-iwxq-aasd i-djyv-fypiyh 100 mg-150 mg- 50 mg-150 mg Capsule Take by mouth. 03/06/20 21 Active Fish Oil-[place]-3 Fatty Acids 300-500 mg Capsule Take by mouth daily. 03/06/20 21 Active cetirizine (ZyrTEC) 10 mg tablet Take 10 mg by mouth daily. 12/21/19 18 Active MULTIVITAMIN ORAL Take 1 Tab by mouth daily. 12/18/19 15 Active Cholecalciferol, Vitamin D3, 50 mcg (2,000 unit) Capsule Take 100 mcg by mouth daily. Active Cinnamon Bark 500 mg Capsule Take 1 Capsule by mouth daily. Active zinc sulfate 50 mg zinc (220 mg) capsule Take 50 mg by mouth daily. Active dulaglutide (TRULICITY) 1.5 mg/0.5 mL injectionIndicati ons:Type 2 diabetes mellitus with stage 3 chronic kidney disease, without long-term current use of insulin (CMS/HCC),Type 2 diabetes mellitus with hyperglycemia, without long-term current use of insulin (CMS/[facility]) Inject 0.5 mL (1.5 mg) by subcutaneous injection every 7 days. 6 mL 3 07/11/20 24 Active conjugated estrogens (PREMARIN) 0.625 mg/gram vaginal creamIndications: Atrophic vaginitis INSERT 1 GRAM INTRAVAGINALLY ONCE WEEKLY 30 Gram 5 08/15/20 24 Active metFORMIN (GLUCOPHAGE XR) 500 mg Extended Release 24 hour tabletIndications :Type 2 diabetes mellitus with diabetic polyneuropathy, without long-term current use of insulin (CMS/HCC) Take 1 Tablet (500 mg) by mouth daily with breakfast. 100 Tablet 3 08/15/20 24 Active FreeStyle Tommy 3 Sensor DeviceIndications :Type 2 diabetes mellitus with stage 3b chronic kidney disease, without long-term current use of insulin (CMS/HCC) 1 Each by Other route every 2 weeks. 6 Each 1 08/21/20 24 Active aspirin (ECOTRIN EC) 81 mg Tablet, Delayed Release (E.C.) Take 81 mg by mouth daily. Active ubidecarenone/vit sutton E mixed (COQ10 SG 100 ORAL) Take 1 Tablet by mouth every 24 hours. Active multivitamin with folic acid 400 mcg Tablet tablet Take 1 Tablet by mouth daily. Active naloxone (NARCAN) 4 mg/spray [place], Non-Aerosol EMERGENCY USE ONLY: Administer 1 spray (4 mg) in one nostril one time. May repeat in alternating nostrils every 2-3 min until responsive or EMS arrives. 1 Each 09/18/19 25 Active rosuvastatin (CRESTOR) 5 mg tabletIndications :Type 2 diabetes mellitus with diabetic polyneuropathy, without long-term current use of insulin (CMS/HCC),Mixed hyperlipidemia Take 1 Tablet (5 mg) by mouth every Tuesday, Tuesday, and Tuesday. Dose reduction 40 Tablet 3 09/19/19 25 Active metoprolol succinate (TOPROL XL) 25 mg Extended Release 24 hour tabletIndications :HTN (hypertension), benign Take 1 Tablet (25 mg) by mouth daily. 100 Tablet 3 09/18/19 25 Active lisinopriL (PRINIVIL) 20 mg tabletIndications :Type 2 diabetes mellitus with diabetic polyneuropathy, without long-term current use of insulin (CMS/HCC),Type 2 diabetes mellitus with stage 3b chronic kidney disease, without long-term current use of insulin (CMS/HCC),HTN (hypertension), benign Take 1 Tablet (20 mg) by mouth daily. 100 Tablet 3 09/18/19 25 Active levothyroxine 50 mcg tabletIndications :Acquired hypothyroidism Take 1 Tablet (50 mcg) by mouth daily. 100 Tablet 3 09/18/19 25 Active DULoxetine (CYMBALTA) 30 mg Capsule, Delayed Release(E.C.)Mallory cations:Type 2 diabetes mellitus with diabetic polyneuropathy, without long-term current use of insulin ([facility]),RASHMI (generalized anxiety disorder) Take 1 Capsule (30 mg) by mouth daily. 90 Capsule 3 09/18/19 25 Active nystatin (MYCOSTATIN) 100,000 unit/gram Cream APPLY TO AFFECTED AREA(S) TOPICALLY TWICE DAILY FOR 7 TO 10 DAYS UNTIL CLEAR 30 Gram 2 04/08/20 25 Active ALPRAZolam (XANAX) 0.25 mg tabletIndications :RASHMI (generalized anxiety disorder) Take 1 Tablet (0.25 mg) by mouth 3 times daily as needed for Anxiety. 270 Tablet 04/29/20 25 Active traMADol (ULTRAM) 50 mg tabletIndications :Primary osteoarthritis of both knees,Status post total right knee replacement,Chron ic pain of right knee Take 1 Tablet (50 mg) by mouth 2 times daily as needed for Pain, Moderate. 60 Tablet 2 05/01/20 25 Active diphenoxylate-atr opine 2.5 mg-0.025 mg tabletIndications :Irritable bowel syndrome without diarrhea Take 1 Tablet by mouth 1 time daily as needed for Diarrhea/Loose Stools. 90 Tablet 1 05/03/20 25 Active diphenoxylate-atr opine 2.5 mg-0.025 mg tabletIndications :Irritable bowel syndrome without diarrhea Take 1 Tablet by mouth 1 time daily as needed for Diarrhea/Loose Stools. 90 Tablet 1 08/31/20 24 2024 Discontin ued(Reord er) traMADoL (ULTRAM) 50 mg tabletIndications :Primary osteoarthritis of both knees,Status post total right knee replacement,Chron ic pain of right knee Take 1 Tablet (50 mg) by mouth 2 times daily as needed for Pain, Moderate. 60 Tablet 2 09/18/19 25 2024 Discontin ued(Reord er) ALPRAZolam (XANAX) 0.25 mg tabletIndications :RASHMI (generalized anxiety disorder) Take 1 Tablet (0.25 mg) by mouth 3 times daily as needed for Anxiety. 270 Tablet 10/26/19 25 2024 Discontin ued(Reord er) cephALEXin (KEFLEX) 500 mg capsule Take 1 Capsule (500 mg) by mouth 3 times daily for 7 days. Take at onset of UTI symptoms 21 Capsule 04/19/20 25 2024 cephALEXin (KEFLEX) 500 mg capsule Take 1 Capsule (500 mg) by mouth 3 times daily for 7 days. 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 History of colon polyps 10/22/2015 Overview (01/08/2021): Colon polyps removed at colonoscopy. Pathology pending Internal hemorrhoids without complication 2015 Type 2 diabetes mellitus wit h stage 3b chronic kidney disease, without long-term current use of insulin 09/26/2015 Atrophic vaginitis 08/13/2015 H/O cancer of gall bladder, S/P Cholecystectomy 02/19/2013 Dupuytren's contracture of hand 09/17/2010 RASHMI (generalized anxiety disorder) 03/14/2009 Microalbuminuria, 01/1801/30/2009 Overview (01/08/2021): On Lisinopril 40 HTN (hypertension), benign 01/29/2009 Hyperlipidemia 01/29/2009 Overview (01/08/2021): LDL: 105 (02/22); 73 (01/21); 97 (01/20); 93 (04/21); 123 (09/20) HDL: 42 (02/22); 42 (01/21); 48 (01/20); 47 (04/21); 54 (09/20) Hypothyroidism 01/29/2009 Overview (01/08/2021): TSH: 02/22; 01/21; 01/20; 10/22; 09/20 Gastroesophageal reflux disease Type 2 diabetes mellitus wit h diabetic polyneuropathy, without long-term current use of insulin Overview (01/08/2021): A1C: 7.3 (02/22); 6.7 (10/25); 7.2 (10/24); 8.2 (05/23); 7.6 (01/20); 7.4 (08/21); 7.2 (04/21); 7.0 (10/22); 7.3 (07/21); 6.7 (04/20); 6.7 (01/18); 6.6 (09/20) Microalbumin: 10/25 (normal); 05/23 (normal); 04/21 (positive); 01/18 (Positive) Retinal exam: 04/23; 12/21 (normal); 11/18 (Normal); Dr. Saab/Danilo ([facility]) Chronic pain of right knee Resolved Problems Problem Noted Date Diagnosed Date Resolved Date Preoperative general physical examination 06/26/2019 08/03/2019 Anemia 06/26/2019 08/03/2019 Hyponatremia 06/26/2019 08/03/2019 Type 2 diabetes mellitus wit h hyperglycemia, without long-term current use of insulin 12/25/2018 04/20/2022 Right rotator cuff tendinitis 11/22/2016 06/05/2018 Bicipital tendonitis of right shoulder 07/19/2016 06/05/2018 Type 2 diabetes with stage 3 chronic kidney disease GFR 30-59 11/14/2015 11/22/2016 Hyperlipidemia 11/14/2015 11/22/2016 Stage 3 chronic kidney disease 09/26/2015 08/17/2021 Diabetic neuropathy 06/09/2011 03/06/20 21 Colon cancer screening 02/05/201111/22 Overview (01/07/2021): Colonoscopy: around 2005 (no polyps per patient, in [place]) Osteoporosis screening 08/19/201011/22 Overview (01/07/2021): BMD: 11/22 (normal); 2007 (Normal per patient) Breast CA Screening 01/29/2009 11/23/19 17 Overview (01/07/2021): Mammo: 09/24; 08/22; 08/21; 10/21 Encounters Date Type Department Care Team Description 05/21/2025 External Device Data [facility] ABSTRACTION Provider, Abstract 05/07/[address] [address] Gigi Garza MD Medication Refill; Patient Communication 05/03/[address] [address] Gigi Garza MD Irritable bowel syndrome without diarrhea 05/01/[address] [address] Gigi Garza MD Primary osteoarthritis of both knees; Status post total right knee replacement; Chronic pain of right knee 04/30/2025 Orders Only [address] [place] [address] Gigi Garza MD Type 2 diabetes mellitus with stage 3b chronic kidney disease, without long-term current use of insulin ([facility]) (Primary Dx) 04/29/[address] [address] Gigi Garza MD Needs Orders Written 04/29/[address] [address] Gigi Garza MD RASHMI (generalized anxiety disorder) 04/19/[address] [address] Gigi Garza MD Medication Question 04/08/2025 Refill [facility] [address] [facility] [address] [place] [address] Vernell, Sarah Jackson, DEVORA 03/27/2025 External Device Data [facility] ABSTRACTION Provider, Abstract 03/26/2025 External Device Data [facility] ABSTRACTION Provider, Abstract 02/26/2025 External Device Data [facility] ABSTRACTION Provider, Abstract from Last 3 Months Immunizations Immunization Administration Dates Next Due (PNEUMOVAX 23)(50 YRS UP) PN EUMOCOCCAL POLYSACCHARIDE (PPV23) 0.5 ML, IM 06/16/2009 (SHINGRIX)(50 YRS UP) ZOSTER VACCINE RECOMBINANT, 0.5 ML, IM 11/30/2018,09/24/2018 INFLUENZA VACCINE HIGH DOSE QUADRIVALENT 65 YR UP PF IM 07/22/2020 Influenza Seasonal Unspecifi ed Formulation IM 06/08/2019,06/21/2012,06/25/2010 Influenza Vaccine High Dose 65+ Yrs IM 0 05/25/2018,06/21/2017,06/11/2016,06/13,06/25/2014 Influenza Vaccine Split 3+ Yrs IM 06/16/2009 Influenza Vaccine Split 3+ Yrs PF IM 06/18/2013, 06/11/2013,06/09/2011 Influenza Vaccine Tri Adjuva nted 65+ PF IM 06/08/2019 Pneumococcal conjugate, unsp ecified formulation 09/12/2003 Family History Medical History Relation Name Comments Lung Cancer Brother Zane Diabetes Daughter 1 Angie Healthy Daughter 2 Lesly Diabetes Daughter 3 Farnaz No Known Problems Father Diabetes Mother Arthritis-osteo Sister 1 Alexandra No Known Problems Sister 2 Diamond Arthritis-osteo Sister 3 Krupa Hypertension Sister 3 Krupa Relation Name Status Comments Brother Zane Daughter 1 Angie Alive Daughter 2 Lesly Alive Daughter 3 Farnaz Alive Father (Age 98) Mother (Age 72) Hit by a c ar Sister 1 Alexandra Alive Sister 2 Diamond Alive Sister 3 Krupa Social History Tobacco Use Types Packs/Day Years Used Date Smoking Tobacco: Former Cigarettes Smokeless Tobacco: Never Tobacco Cessation:Counseling Given: Not Answered Comments:Quit smoking: Quit smoking in her 30's [...] on file Legal Sex Female 1:34 PM [employer] Gender Identity Not on file Sexual Orientation Not on file Last Filed Vital Signs Vital Sign Reading Time Taken Comments Blood Pressure 130/82 12/17/2024 9:34 AM CDT Pulse 66 12/17/2024 9:34 AM CDT Temperature 36.6 C (97.8 F) 12/17/2024 9:34 AM CDT Respiratory Rate 18 12/17/2024 9:34 AM CDT Oxygen Saturation 97% 12/17/2024 9:34 AM CDT Inhaled Oxygen Concentration - - Weight 69.9 kg (154 lb) 12/17/2024 9:34 AM CDT Height 157.5 cm (5' 2 ) 12/17/2024 9:34 AM CDT Body Mass Index 28.17 12/17/2024 9:34 AM CDT Plan of Treatment Upcoming Encounters Date Type Department Care Team (Late st Contact Info) Description 06/21/2025 10:40 AM CDT Office Visit [facility] [address] [address] Gigi Garza MD [address] [address] Health Maintenance Due Date Last Done Comments DTAP/TDAP/TD VACCINES (1 - Tdap) 1959 PNEUMOCOCCAL VACCINE 50+ YEA RS (2 of 2 - PCV) 06/16/2010 06/16/2009, 09/12/2003 RSV VACCINE (60+ or ) (1 - 1-dose 75+ series) 2013 DIABETES ANNUAL FOOT EXAM 04/19/20232021, 03/06/2021, 05/08/2018, Additional history exists OSTEOPOROSIS SCREENING 05/03/2024 9, 05/03/2019, 05/03/2019, Additional history exists Medicare Ad[place] ([place]) Preventative Visit/Annual Wellness Visit 09/12/2024 04/07/2022 INFLUENZA VACCINE (#1) 2025 , 06/08/2019, 06/08/2019, Additional history exists DIABETES HBA1C Q 6 MONTHS 06/01/20252024, 09/18/2024, 06/12/2024, Additional history exists DIABETES ANNUAL RETINAL EXAM 06/04/2025, 05/27/2022, 08/13/2020, Additional history exists DIABETES MICROALBUMIN ANNUAL SCREEN 09/18/2025 09/18/2024, 06/15/2022, 04/09/2021, Additional history exists DIABETES: A1C (Auto Order) 11/29/202511/29, 09/18/2024, 06/12/2024, Additional history exists LDL CHOLESTEROL ANNUAL 11/29/2025 , 09/18/2024, 01/03/2024, Additional history exists ZOSTER VACCINE Completed 11/30/2018, 09/24/2018 KHE uACR (Auto Order) Completed 09/18/2024 , 06/15/2022, 04/09/2021, Additional history exists KHE eGFR (Auto Order) Completed 11/29/2024 , 09/18/2024, 06/12/2024, Additional history exists Medical Devices Implanted Type Area Integrated Circuit Ic Layout Designer Device Identifier Shelf Expiration Date Model / Serial / Lot Simplex Hi Viscosity Gent 6195-1-010 - [id number] Implanted: by Goodman LY, Judd Short MD (Quantity not on file) Cement Right: Knee [employer]ORY- [employer] 12/10/2020 6195-1-010 / / [id number] Simplex Hi Viscosity Gent 6195-1-010 - [id number] Implanted: by Judd Gotti III, MD (Quantity not on file) Cement Right: Knee [employer]ORY- [employer] 12/10/2020 6195-1-010 / / [id number] Comp Fem Attn Ps Cmnt Sz4 1504-10-224 - [id number] Implanted:Qty : 1 on 07/03/2019 by Judd Gotti III, MD Knee Right: Knee [employer] 03/11/2029 [id number] / / [id number] Comp Tib Attn Fb Cmnt Sz3 1506-70-003 - [id number] Implanted:Qty : 1 on 07/03/2019 by Judd Gotti III, MD Knee Right: Knee [employer] 05/12/2029 [id number] / / [id number] Ins Attn Fb Ps Sz4 7mm 151640-846 - [id number] Implanted:Qty : 1 on 07/03/2019 by Judd Gotti III, MD Knee Right: Knee [employer] 11/10/2019 [id number] / / [id number] Patella Attune Suzy 29mm 1518-10-029 - [id number] Implanted:Qty : 1 on 07/03/2019 by Judd Gotti III, MD Knee Right: Knee [employer] 05/12/2024 [id number] / / [id number] Explanted Type Area Integrated Circuit Ic Layout Designer Device Identifier Shelf Expiration Date Model / Serial / Lot Ins Attn Fb Ps Sz4 6mm 1516-37-814 - [id number] Implanted:06/13 by Judd Gotti III, MD (Quantity not on file) Explanted:Qty: 1 on 07/03/2019 Knee Right: Knee [employer] 02/10/2024 [id number] / / [id number] Procedures Procedure Name Priority Date/Time Associated Diagnosis Comments COMPREHENSIVE METABOLIC PANEL Routine 11/29/2024 3:04 PM CDT LIPID PANEL Routine 11/29/2024 HEMOGLOBIN A1C Routine 11/29/2024 MICROALBUMIN/CREATININ E RATIO, RANDOM UR Routine 09/18/2024 9:54 AM [employer] Type 2 diabetes mellitus with diabetic polyneuropathy, without long-term current use of insulin ([facility]) HTN (hypertension), benign HM DIABETES EYE EXAM Routine 05/27/2022 XR DEXA BONE DENSITY AXIAL 1 OR MORE SITES Routine 05/03/2019 12:00 AM CDT from Last 3 Months or Most Recently Relevant to Health Maintenance Results * COMPREHENSIVE METABOLIC PANEL (11/29/2024 3:04 PM CDT) Blood us Abstract Provider CHEMISTRY ORDERABLES Final Res ult * HEMOGLOBIN A1C (11/29/2024) Pathologist [facility] ABSTRACTED HGB A1C 6.6 % Blood 11/29/2024 us Abstract Provider CHEMISTRY ORDERABLES Final Res ult * LIPID PANEL (11/29/2024) Pathologist [facility] ABSTRACTED CHOLESTEROL 206 ABSTRACTED TRIGLYCERIDE 150 ABSTRACTED HDL 53 ABSTRACTED LDL CALCULATED 123 Blood 11/29/2024 us Abstract Provider CHEMISTRY ORDERABLES Final Res ult * MICROALBUMIN/CREATININE RATIO, RANDOM UR (09/18/2024 9:54 AM [employer]) Pathologist [facility] Creatinine, Urine 204 20 - 275 mg/dL [facility] MICROALBUMIN, URINE 5.3 See Note: mg/dL [facility] Comment: Reference Range: Reference Range Not established MICROALBUMIN/CREAT RATIO, UR 26 <30 mg/g creat [facility] Comment: The ADA defines abnormalities in albumin excretion as follows: Albuminuria Category Result (mg/g creatinine) Normal to Mildly increased <30 Moderately increased 30-299 Severely increased > OR = 300 The ADA recommends that at least two of three specimens collected within a 3-6 month period be abnormal before considering a patient to be within a diagnostic category. Test Performed at: [facility] [address] [place] [address] Poly Coelho MD Urine URINE SPECIMEN OBTAINED BY CLEAN CATCH PROCEDURE / Unknown 09/18/2024 9:54 AM [employer] 09/19/2024 9:52 AM [employer] Gigi Garza MD URINE ORDERABLES Final Re sult [facility] [phone] [facility] [address] [place] [address] * DIABETES EYE EXAM (05/27/2022) Abstract Provider HEALTH MAINTENANCE Final Resul t * XR DEXA BONE DENSITY AXIAL 1 OR MORE SITES (05/03/2019 12:00 AM CDT) Anatomical Region Laterality Modality Other Abstract Spg Provider DIAGNOSTIC IMAGING ORDERAB LES Final Result from Last 3 Months or Most Recently Relevant to Health Maintenance Insurance [facility] DUAL COMPLETE PPO DSNP [facility] [id number] * Guarantor: NINOSKA CALI Account Type Relation to Patient Date of Phone Billing Address Personal/Family [address] [place] [address] [address] [place] [address] [employer] Medicare Part D Care Teams Crusher Machine Operator Relationship Specialty Start Date End Date Gigi Garza MD [address] [address] PCP - General Family Practice 07/11/24
--- OUTSIDE RECORDS SUMMARY | 2025-05-25 16:59 | XMS_ITS | Clinical Summary ---
Author Organization [facility] Address [address] [place] [address] Care Team Providers Care Volunteer Recruiter Name Role Phone Gigi Garza MD Primary Care Provider [phone] Allergies Active Allergy Reactions Criticality Noted Date Comments Ibuprofen Other (See Comments) High 05/11/2018 Cannot take due to kidney disease Naproxen Sodium Other (See Comments) High 05/11/2018 Pt cannot take due to kidney disease Pravastatin Muscle Pain Low 03/17/2015 Medications MULTIVITAMIN ORAL Take 1 Tab by mouth daily. 12/18/19 15 Active ZYRTEC 10 mg tablet Take 10 mg by mouth daily. 12/21/19 18 Active Insulin [place]bl[place], Disposable, (BD ULTRA-FINE SHORT PEN NEEDLE) 31 gauge x 5/16 Needle To use with victoza. 100 Each 4 04/24/20 18 Active L. acidophilus/L. rhamnosus (PROBIOTIC ORAL) Take 1 Capsule by mouth daily. Active ubidecarenone (CO Q-10 ORAL) Take 1 Tablet by mouth daily. Active ondansetron (ZOFRAN) 4 mg Tablet Take 1 Tablet (4 mg) by mouth every 8 hours as needed for Nausea/Emesis. 10 Tablet 10/07/19 20 Active naloxone (NARCAN) 4 mg/spray [place], Non-Aerosol EMERGENCY USE ONLY: Administer 1 spray (4 mg) in one nostril one time. May repeat in alternating nostrils every 2-3 min until responsive or EMS arrives. 2 Each 3 07/22/20 20 Active Blood-Glucose Meter (Accu-Chek Guide Me Glucose Mtr) Use to check glucose level BID Dx E11.9. 1 Each 10/02/19 21 Active lancets accu check guide lancet (pen) fast click needles. E11.9 check blood sugar twice daily. 100 Each 11 10/08/19 Active Lancing Device with Lancets (Accu-Chek FastClix Lancing Dev) Kit Bid use 1 Each 10/09/19 Active blood sugar diagnostic (Accu-Chek Guide test strips) Strip USE 1 TWICE DAILY DX E11.9 200 Each 2 12/05/19 21 Active pioglitazone (Actos) 15 mg tabletIndications: Type 2 diabetes mellitus with hyperglycemia, without long-term current use of insulin ([facility]),Type 2 diabetes mellitus with stage 3b chronic kidney disease, without long-term current use of insulin ([facility]),Type 2 diabetes mellitus with diabetic polyneuropathy, without long-term current use of insulin ([facility]) Take 1 Tablet (15 mg) by mouth daily with breakfast. 90 Tablet 12/18/19 Active omeprazole (PriLOSEC) 20 mg Capsule, Delayed Release(E.C.)Indic ations:Gastroesoph ageal reflux disease Take 1 Capsule (20 mg) by mouth daily. 90 Capsule 12/18/19 21 Active lisinopriL (PRINIVIL) 20 mg tabletIndications: Type 2 diabetes mellitus with hyperglycemia, without long-term current use of insulin ([facility]),HTN (hypertension), benign TAKE 1 TABLET EVERY DAY 90 Tablet 1 12/18/19 Active levothyroxine 50 mcg tabletIndications: Acquired hypothyroidism TAKE 1 TABLET EVERY DAY 90 Tablet 12/18/19 Active glipiZIDE (GLUCOTROL) 10 mg tabletIndications: Type 2 diabetes mellitus with hyperglycemia, without long-term current use of insulin ([facility]),Type 2 diabetes mellitus with stage 3 chronic kidney disease, without long-term current use of insulin ([facility]) Take 1 Tablet (10 mg) by mouth 2 times daily with meals. 180 Tablet 12/18/19 Active rosuvastatin (CRESTOR) 10 mg tabletIndications: Type 2 diabetes mellitus with hyperglycemia, without long-term current use of insulin ([facility]),Type 2 diabetes mellitus with stage 3b chronic kidney disease, without long-term current use of insulin ([facility]),Mixed hyperlipidemia,Typ e 2 diabetes mellitus with diabetic polyneuropathy, without long-term current use of insulin ([facility]) Take 1 Tablet (10 mg) by mouth daily at bedtime. 90 Tablet 1 12/18/19 Active rosuvastatin (Crestor) 5 mg tablet Take 1 Tablet (5 mg) by mouth daily. 90 Tablet 1 12/18/19 Active Fish Oil-Argyle-3 Fatty Acids 300-500 mg Capsule Take by mouth daily. Active zcfcjlq-ichj-ckpsd -oreg-capryl 100 mg-150 mg- 50 mg-150 mg Capsule Take by mouth. Active traMADoL (ULTRAM) 50 mg tabletIndications: Primary osteoarthritis of both knees,Status post total right knee replacement,Chroni c pain of right knee Take 1 Tablet (50 mg) by mouth 2 times daily as needed for Pain. 60 Tablet 2 03/06/20 Active dulaglutide (Trulicity) 1.5 mg/0.5 mL injectionIndicatio ns:Type 2 diabetes mellitus with hyperglycemia, without long-term current use of insulin ([facility]) Inject 0.5 mL (1.5 mg) by subcutaneous injection every 7 days. 2 mL 03/06/20 Active conjugated estrogens (Premarin) 0.625 mg/gram vaginal creamIndications:A trophic vaginitis INSERT 1 GRAM INTRAVAGINALLY WEEKLY 30 Gram 03/06/20 Active diphenoxylate-atro pine 2.5-0.025 mg tablet Take 1 Tablet by mouth 4 times daily as needed for Diarrhea/Loose Stools. 30 Tablet 03/06/20 Active ALPRAZolam (XANAX) 0.25 mg tabletIndications: RASHMI (generalized anxiety disorder) Take 1 Tablet (0.25 mg) by mouth 3 times daily as needed for Anxiety. 90 Tablet 03/06/20 Active nystatin (MYCOSTATIN) 100,000 unit/gram Cream APPLY TO AFFECTED AREA TWICE DAILY FOR 7 TO 10 DAYS UNTIL CLEAR. 90 Gram 03/06/20 Active latanoprost (XALATAN) 0.005 % solution Administer 1 Drop in both eyes daily at bedtime. 2.5 mL 03/06/20 Active DULoxetine (CYMBALTA) 30 mg Capsule, Delayed Release(E.C.)Indic ations:Type 2 diabetes mellitus with diabetic polyneuropathy, without long-term current use of insulin ([facility]),RASHMI (generalized anxiety disorder) Take 1 Capsule (30 mg) by mouth daily. 90 Capsule 4 03/06/20 21 Active Active Problems Problem Noted Date Diagnosed Date Generalized osteoarthritis of multiple sites 06/2020 RIGHT TKA (07/03/2019) 07/03/2019 Type 2 diabetes mellitus wit h hyperglycemia, without long-term current use of insulin 12/25/2018 Primary osteoarthritis of both knees 04/28/2018 Diverticulosis of large intestine without hemorr jessica 10/22/2015 Overview (10/22/2015): Mild disease. History of colon polyps 10/22/2015 Overview (10/22/2015): Colon polyps removed at colonoscopy. Pathology pending Internal hemorrhoids without complication 2015 Type 2 diabetes with stage 3 chronic kidney disease GFR 30-59 09/26/2015 Stage 3 chronic kidney disease 09/26/2015 Atrophic vaginitis 08/13/2015 H/O cancer of gall bladder, S/P Cholecystectomy 02/19/2013 Dupuytren's contracture of hand 09/17/2010 RASHMI (generalized anxiety disorder) 03/14/2009 Microalbuminuria, 01/1801/30/2009 Overview (08/06/2009): On Lisinopril 40 HTN (hypertension), benign 01/29/2009 Hyperlipidemia 01/29/2009 Overview (02/20/2013): LDL: 105 (02/22); 73 (01/21); 97 (01/20); 93 (04/21); 123 (09/20) HDL: 42 (02/22); 42 (01/21); 48 (01/20); 47 (04/21); 54 (09/20) Hypothyroidism 01/29/2009 Overview (02/19/2013): TSH: 02/22; 01/21; 01/20; 10/22; 09/20 Type 2 diabetes mellitus wit h diabetic polyneuropathy, without long-term current use of insulin Overview (02/20/2013): A1C: 7.3 (02/22); 6.7 (10/25); 7.2 (10/24); 8.2 (05/23); 7.6 (01/20); 7.4 (08/21); 7.2 (04/21); 7.0 (10/22); 7.3 (07/21); 6.7 (04/20); 6.7 (01/18); 6.6 (09/20) Microalbumin: 10/25 (normal); 05/23 (normal); 04/21 (positive); 01/18 (Positive) Retinal exam: 04/23; 12/21 (normal); 11/18 (Normal); [facility] GERD (gastroesophageal reflux disease) Chronic pain of right knee Resolved Problems Problem Noted Date Diagnosed Date Resolved Date Preoperative general physical examination 06/26/2019 08/03/2019 Anemia 06/26/2019 08/03/2019 Hyponatremia 06/26/2019 08/03/2019 Right rotator cuff tendinitis 11/22/2016 06/05/2018 Bicipital tendonitis of right shoulder 07/19/2016 06/05/2018 Type 2 diabetes with stage 3 chronic kidney disease GFR 30-59 11/14/2015 11/22/2016 Hyperlipidemia 11/14/2015 11/22/2016 Diabetic neuropathy 06/09/2011 03/06/20 21 Colon cancer screening 02/05/201111/22 Overview (02/05/2011): Colonoscopy: around 2005 (no polyps per patient, in [place]) Osteoporosis screening 08/19/201011/22 Overview (11/14/2012): BMD: 11/22 (normal); 2007 (Normal per patient) Breast CA Screening 01/29/2009 11/23/19 17 Overview (09/18/2012): Mammo: 09/24; 08/22; 08/21; 10/21 Immunizations Immunization Administration Dates Next Due (PNEUMOVAX [...] Lung Cancer Brother Zane Diabetes Daughter 1 Farnaz Diabetes Daughter 2 Angie Healthy Daughter 3 Lesly No Known Problems Father Diabetes Mother Arthritis-osteo Sister 1 Krupa Hypertension Sister 1 Krupa Arthritis-osteo Sister 2 Alexandra No Known Problems Sister 3 Diamond Relation Name Status Comments Brother Zane Daughter 1 Farnaz Alive Daughter 2 Angie Alive Daughter 3 Lesly Alive Father (Age 98) Mother (Age 72) Hit by a c ar Sister 1 Krupa Sister 2 Alexandra Alive Sister 3 Diamond Alive Social History Tobacco Use Types Packs/Day Years Used Date Smoking Tobacco: Former Cigarettes 0.5 4 Smokeless Tobacco: Never Tobacco Cessation:Counseling Given: No Comments:Quit smoking in her 30's Alcohol Use Standard Drinks/Week Comments No 0 (1 standard drink = 0.6 oz pur e alcohol) Comments No Sex and Gender Information Value Date Recorded Sex Assigned at Not on file Legal Sex Female 5:42 AM HUMAN RESOURCES COORDINATOR Gender Identity Not on file Sexual Orientation Not on file Occupation Industry Job Start Date Job End Date Not on file Not on file Not on file Not on file Last Filed Vital Signs Vital Sign Reading Time Taken Comments Blood Pressure 118/70 03/06/2021 2:37 PM CDT Pulse 85 03/06/2021 2:37 PM CDT Temperature 36.6 C (97.8 F) 03/06/2021 2:37 PM CDT Respiratory Rate 16 03/06/2021 2:37 PM CDT Oxygen Saturation 97% 03/06/2021 2:37 PM CDT Inhaled Oxygen Concentration - - Weight 71.2 kg (157 lb) 03/06/2021 2:37 PM CDT Height 152.4 cm (5') 03/06/2021 2:37 PM CDT Body Mass Index 30.66 03/06/2021 2:37 PM CDT Plan of Treatment Health Maintenance Due Date Last Done Comments DTAP/TDAP/TD VACCINES (1 - Tdap) 1957 RSV VACCINE (60+ or ) (1 - 1-dose 75+ series) 2013 DIABETES HBA1C Q 6 MONTHS 04/23/20212020, 07/17/2020, 07/17/2020, Additional history exists DIABETES MICROALBUMIN ANNUAL SCREEN 07/17/2021 07/17/2020, 08/03/2019, 02/21/2018, Additional history exists LDL CHOLESTEROL ANNUAL 10/24/2021 1, 07/17/2020, 02/29/2020, Additional history exists DIABETES ANNUAL FOOT EXAM 03/06/20222020, 05/08/2018, 08/20/2016, Additional history exists DIABETES ANNUAL RETINAL EXAM 05/27/2023, 07/28/2020, 08/14/2019, Additional history exists OSTEOPOROSIS SCREENING 05/03/2024 9, 05/03/2019, 06/16/2015, Additional history exists [place] Preventative Visit/Annual Wellness Visit 09/12/2024 07/07/2018, 07/08/2017, 11/14/2015, Additional history exists INFLUENZA VACCINE (#1) 2025 0, 06/08/2019, 06/08/2019, Additional history exists PNEUMOCOCCAL VACCINE 50+ YEARS Completed 1 , 06/16/2009, 09/12/2003 ZOSTER VACCINE Completed 11/30/2018, 09/24/2018 Medical Devices Implanted Type Area Concrete Engineer Device Identifier Shelf Expiration Date Model / Serial / Lot Simplex Hi Viscosity Gent 6195-1-010 - [id number] Implanted:07/03 by Judd Gotti III, MD at [facility] (Quantity not on file) Cement Right: Knee [employer] 12/10/2020 6195-1-010 / / [id number] Simplex Hi Viscosity Gent 6195-1-010 - [id number] Implanted:07/03 by Judd Gotti III, MD at [facility] (Quantity not on file) Cement Right: Knee [employer] 12/10/2020 6195-1-010 / / [id number] Patella Attune Suzy 29mm 1518-10-029 - [id number] Implanted:Qty: 1 on 07/03/2019 by Judd Gotti III, MD at [facility] Knee Right: Knee [employer] 05/12/2024 [id number] / / [id number] Comp Tib Attn Fb Cmnt Sz3 1506-70-003 - [id number] Implanted:Qty: 1 on 07/03/2019 by Judd Gotti III, MD at [facility] Knee Right: Knee [employer] 05/12/2029 [id number] / / [id number] Comp Fem Attn Ps Cmnt Sz4 1504-10-224 - [id number] Implanted:Qty: 1 on 07/03/2019 by Judd Gotti III, MD at [facility] Knee Right: Knee [employer] 03/11/2029 [id number] / / [id number] Ins Attn Fb Ps Sz4 7mm 1516-40-407 - [id number] Implanted:Qty: 1 on 07/03/2019 by Judd Gotti III, MD at [facility] Knee Right: Knee [employer] 11/10/2019 [id number] / / [id number] Explanted Type Area Concrete Engineer Device Identifier Shelf Expiration Date Model / Serial / Lot Ins Attn Fb Ps Sz4 6mm 1516-40-406 - [id number] Implanted:07/03 by Judd Gotti III, MD (Quantity not on file) Explanted:Qty: 1 on 07/03/2019 at [facility] Knee Right: Knee [employer] 02/10/2024 [id number] / / [id number] Procedures Procedure Name Priority Date/Time Associated Diagnosis Comments LIPID PANEL Routine 10/24/2020 DIABETES EYE EXAM Routine 07/28/2020 MICROALBUMIN/CREATI NINE RATIO, RANDOM UR Routine 07/17/2020 10:32 AM HUMAN RESOURCES COORDINATOR Type 2 diabetes mellitus with stage 3 chronic kidney disease, without long-term current use of insulin, unspecified whether stage 3a or 3b CKD ([facility]) HEMOGLOBIN A1C Routine 07/17/2020 10:21 AM HUMAN RESOURCES COORDINATOR Type 2 diabetes mellitus with stage 3 chronic kidney disease, without long-term current use of insulin, unspecified whether stage 3a or 3b CKD ([facility]) XR DEXA BONE DENSITY AXIAL 1 OR MORE SITES Routine 05/03/2019 DIABETES FOOT EXAM Routine 02/08/2014 from Last 3 Months or Most Recently Relevant to Health Maintenance Results * LIPID PANEL (10/24/2020) ABSTRACTED CHOLESTEROL 188 EXTERNAL LAB ABSTRACTED TRIGLYCERIDE 181 EXTERNAL LAB ABSTRACTED HDL 50 EXTERNAL LAB ABSTRACTED LDL CALCULATED 108 EXTERNAL LAB CHOLESTEROL EXTERNAL LAB TRIGLYCERIDE EXTERNAL LAB HDL EXTERNAL LAB LDL CALCULATED EXTERNAL LAB Blood 10/24/2020 us Abstract [facility] [place] CHEMISTRY ORDERABLES Final Result EXTERNAL LAB * DIABETES EYE EXAM (07/28/2020) us Abstract Sp Provider HEALTH MAINTENANCE Final R esult * (ABNORMAL) MICROALBUMIN/CREATININE RATIO, RANDOM UR (07/17/2020 10:32 AM HUMAN RESOURCES COORDINATOR) MICROALBUMIN, URINE 1.8 No Reference Range mg/dL 07/17/2020 9:32 PM HUMAN RESOURCES COORDINATOR [facility] CREATININE, URINE 71.1 29.0 - 226.0 mg/dL 07/17/2020 9:32 PM HUMAN RESOURCES COORDINATOR [facility] Comment:Reference Range vari es with fluid intake and diet. MICROALBUMIN/ CREAT RATIO, UR 25.3(H) <25.0 mg/g 07/17/2020 9:32 PM [facility] Urine URINE SPECIMEN OBTAINED BY CLEAN CATCH PROCEDURE / Unknown Collection / Unknown 07/17/2020 10:32 AM HUMAN RESOURCES COORDINATOR 07/17/2020 8:18 PM [facility] - 07/17/2020 9:32 PM HUMAN RESOURCES COORDINATOR Condition Microalbumin/Creat ratio Normal Males <17 Normal Females <25 Microalbuminuria Males 17-299 Microalbuminuria Females 25-299 Overt proteinuria >=300 Gigi Garza MD URINE ORDERABLES Final Re sult [facility]# [id number] [address] [place] [address] * (ABNORMAL) HEMOGLOBIN A1C (07/17/2020 10:21 AM HUMAN RESOURCES COORDINATOR) HEMOGLOBIN A1C 9.3(H) See Comment % 07/17/2020 8:47 PM [facility] EST. AVG GLUCOSE, A1C 220 mg/dL 07/17/2020 8:47 PM [facility] Blood Collection / Unknown 07/17/2020 10:21 AM HUMAN RESOURCES COORDINATOR 07/17/2020 8:19 PM [facility] 07/17/2020 8:47 PM HUMAN RESOURCES COORDINATOR HGB A1C INTERPRETATION NORMAL: <5.7% PRE-DIABETES: 5.7 - 6.4% DIABETES: 6.5% OR GREATER Falsely low A1C measurements can occur when: 1. Anemia and/or hemolytic anemia is present. 2. Hemoglobin variants present. 3. Renal failure. 4. Transfusion of blood product in the last 120 days. We recommend ordering a fructosamine test([id number]) to more accurately assess glycemic status if any of the above conditions are present. Gigi Garza MD CHEMISTRY ORDERABLES Brie l Result [facility]# [id number] [address] [place] [address] * XR DEXA BONE DENSITY AXIAL 1 OR MORE SITES (05/03/2019) Anatomical Region Laterality Modality Other us Abstract Spg Provider DIAGNOSTIC IMAGING ORDERAB LES Final Result * HM DIABETES FOOT EXAM (02/08/2014) us Lorena Escobar MD HEALTH MAINTENANCE Final Re sult from Last 3 Months or Most Recently Relevant to Health Maintenance Insurance D[employer]PLE[employer] Medicare Part D Advance Directives For more information, please contact: [phone] * Full Code (Latest Code Status on File) Date Activated Date Inactivated Comments 10/01/2019 12:47 PM 10/01/2019 7:43 PM * Full Code Date Activated Date Inactivated Comments 10/01/2019 11:24 AM 10/01/2019 12:46 PM * Full Code Date Activated Date Inactivated Comments 07/03/2019 11:00 AM 07/05/2019 2:19 PM * Full Code Date Activated Date Inactivated Comments 07/03/2019 6:51 AM 07/03/2019 10:12 AM * Full Code Date Activated Date Inactivated Comments 10/22/2015 11:00 AM 10/22/2015 1:29 PM Care Teams Volunteer Recruiter Relationship Specialty Start Date End Date Gigi Garza MD [address] [address] PCP - General Family Practice 06/11/16
--- OUTSIDE RECORDS SUMMARY | 2025-05-25 16:59 | XMS_ITS | Encounter Summary ---
Author Organization [facility] Address [address] [facility] [address] [place] [address] Phone Care Team Providers Care Elementary [employer] Music Teacher Name Role Phone Gigi Garza MD Primary Care Provider [phone] Encounter Details Date Type Department Care Team (Late st Contact Info) Description 07/10/2024 Orders Only [facility] [address] [facility] [address] [place] [address] Chronic kidney disease stage 3 due to type 2 diabetes mellitus (HCC) Social History Tobacco Use Types Packs/Day Years Used Date Smoking Tobacco: Never Assessed Comments Unknown Sex and Gender Information Value Date Recorded Sex Assigned at Not on file Legal Sex Female 12:52 PM EDT Gender Identity Not on file Sexual Orientation Not on file documented as of this encounter Plan of Treatment Upcoming Encounters Date Type Department Care Team (Late st Contact Info) Description 06/18/2025 9:00 AM CDT Office Visit [facility], [facility] [address] [place] [address] Guerline Franklin MD [address] [facility] [address] [place] [address] documented as of this encounter Visit Diagnoses Diagnosis Chronic kidney disease stage 3 due to type 2 diabetes mellitus (HCC) documented in this encounter Care Teams [employer] Music Teacher Relationship Specialty Start Date End Date Gigi Garza MD [address] [phone] PCP - General Family Medicine 12/18/24 documented as of this encounter
--- OUTSIDE RECORDS SUMMARY | 2025-05-25 16:59 | XMS_ITS | Encounter Summary ---
Author Organization [facility] Address [address] [place] [address] Care Team Providers Care Auto [employer]ulaway Driver Name Role Phone Gigi Garza MD Primary Care Provider [phone] Reason for Referral * Outpatient Services (Routine) - Closed Specialty Diagnoses / Procedures Referred By Contac t Referred To Contact Radiology Diagnoses Other screening mammogram Procedures MAMMO DIGITIZED STUDY Alejo Mathur MD NO ADDRESS ON FILE [facility] [address] [facility] [address] [place] [address] Phone: tel: fax: Referral ID Status Reason Start Date Expiration Date Visits Re quested Visits Authorized [id number] Closed 09/13/2012 10/14/2013 1 [address] CUP FILLER Encounter Details Date Type Department Care Team (Late st Contact Info) Description 09/13/2012 Ancillary Orders [facility] [place] [address] [facility] [address] [place] [address] Alejo Mathur MD NO ADDRESS ON FILE Breast CA Screening Social History Tobacco Use Types Packs/Day Years Used Date Smoking Tobacco: Never Alcohol Use Standard Drinks/Week Comments No 0 (1 standard drink = 0.6 oz pur e alcohol) Comments No Sex and Gender Information Value Date Recorded Sex Assigned at Not on file Legal Sex Female 5:42 AM GREASE CUP FILLER Gender Identity Not on file Sexual Orientation Not on file documented as of this encounter Plan of Treatment Not on file documented as of this encounter Results * MAMMO DIGITIZED STUDY (08/31/2011 2:53 PM GREASE CUP FILLER) Narrative Cynthia Dumont, RT - 09/13/2012 2:54 PM GREASE CUP FILLER Order information only. Exam was auto-finalized. Procedure [...] CDT COVID-19 06/23/2020 06/23/2020 07/23/2020 8:08 PM GREASE CUP FILLER documented as of this encounter Care Teams Auto [employer]ulaway Driver Relationship Specialty Start Date End Date Gigi Garza MD [address] [phone] PCP - General Family Practice 06/11/16 documented as of this encounter
--- OUTSIDE RECORDS SUMMARY | 2025-05-25 16:59 | XMS_ITS | Encounter Summary ---
Author Organization [facility] Address [address] [place] [address] Care Team Providers Care Parts Room Associate Name Role Phone Gigi Garza MD Primary Care Provider [phone] [phone] Reason for Referral * Outpatient Services (Routine) - Closed Specialty Diagnoses / Procedures Referred By Contac t Referred To Contact Diagnoses Other screening mammogram Procedures MAMMO SCREENING BILAT Alejo Mathur MD NO ADDRESS ON FILE Referral ID Status Reason Start Date Expiration Date Visits Re quested Visits Authorized [id number] Closed 09/01/2011 08/31/2012 1 1 ORATOR REPAIRER Encounter Details Date Type Department Care Team (Late st Contact Info) Description 09/01/2011 Ancillary Orders [facility] Imaging External Read [address] [place] [address] Alejo Mathur MD NO ADDRESS ON FILE Other screening mammogram Social History Tobacco Use Types Packs/Day Years Used Date Smoking Tobacco: Never Alcohol Use Standard Drinks/Week Comments No 0 (1 standard drink = 0.6 oz pur e alcohol) Comments No Sex and Gender Information Value Date Recorded Sex Assigned at Not on file Legal Sex Female 5:42 AM EVAPORATOR REPAIRER Gender Identity Not on file Sexual Orientation Not on file documented as of this encounter Plan of Treatment Not on file documented as of this encounter Results * MAMMO SCREENING BILAT (09/01/2011 1:27 PM EVAPORATOR REPAIRER) Anatomical Region Laterality Modality Breast Bilateral Mammography Narrative 09/02/2011 3:28 PM EVAPORATOR REPAIRER Bilateral Mammogram Reason for Exam: Screening Comparison: Comparison is made with the prior exam(s) dated 09/09/06. Findings: Bilateral CC and MLO views were obtained. This examination was reviewed with the aid of a computer-aided detection system(CAD). The breast tissue density is composed of scattered fibroglandular densities. No significant new findings since the prior mammogram(s). There are stable areas of asymmetry in each breast. Procedure Note Angelique Astudillo MD - 09/02/2011 Bilateral Mammogram Reason for Exam: Screening Comparison: Comparison is made with the prior exam(s) dated 09/09/06. Findings: Bilateral CC and MLO views were obtained. This examination was reviewed with the aid of a computer-aided detectionsystem(CAD). The breast tissue density is composed of scattered fibroglandulardensities. No significant new findings since the prior mammogram(s). There are stableareas of asymmetry in each breast. Alejo Mathur MD MAMMO ORDERABLES Final Res ult documented in this encounter Visit Diagnoses Diagnosis Other screening mammogram documented in this encounter Additional Health Concerns Infection Onset Date Last Indicated Resolved Time R/O COVID-19 06/23/2020 06/23/2020 06/23/2020 1:54 PM CDT COVID-19 06/23/2020 06/23/2020 07/23/2020 8:08 PM EVAPORATOR REPAIRER documented as of this encounter Care Teams Parts Room Associate Relationship Specialty Start Date End Date Gigi Garza MD [address] [place] [phone] PCP - General Family Practice 06/11/16 documented as of this encounter
--- OUTSIDE RECORDS SUMMARY | 2025-05-25 16:59 | XMS_ITS | Encounter Summary ---
Author Organization [facility] Address [address] [place] [address] Care Team Providers Care Dye And Chemical Coordinator Name Role Phone Gigi Garza MD Primary Care Provider [phone] [phone] Encounter Details Date Type Department Care Team (Late st Contact Info) Description 12/28/2018 Ancillary Orders [facility] Orthopedics [facility]opedic [facility] [address] [place] [address] [facility], External Provider [address] [place] [address] Pain Social History Tobacco Use Types Packs/Day Years Used Date Smoking Tobacco: Never Smokeless Tobacco: Never Alcohol Use Standard Drinks/Week Comments No 0 (1 standard drink = 0.6 oz pur e alcohol) Comments No Sex and Gender Information Value Date Recorded Sex Assigned at Not on file 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 External Provider [facility] MR ORDERABLES Final Resu lt documented in this encounter Visit Diagnoses Diagnosis Pain Generalized pain Pain Generalized pain documented in this encounter Additional Health Concerns Infection Onset Date Last Indicated Resolved Time R/O COVID-19 06/23/2020 06/23/2020 06/23/2020 1:54 PM CDT COVID-19 06/23/2020 06/23/2020 07/23/2020 8:08 PM WAX COATING MACHINE TENDER documented as of this encounter Care Teams Dye And Chemical Coordinator Relationship Specialty Start Date End Date Gigi Garza MD [address] [phone] PCP - General Family Practice 06/11/16 documented as of this encounter
--- OUTSIDE RECORDS SUMMARY | 2025-05-25 16:59 | XMS_ITS | Encounter Summary ---
Author Organization [facility] Address [address] [place] [address] Care Team Providers Care Tonnage Compilation Clerk Name Role Phone Gigi Garza MD Primary Care Provider [phone] Encounter Details Date Type Department Care Team (Latest Contact Info) Description 06/04/2002 Outpatient Historical [facility] Medicine [address] [address] Colin Marquez DO NO ADDRESS ON FILE HYPOTHYROIDISM NOS (Primary Dx); HYPERLIPIDEMIA NEC/NOS Social History Tobacco Use Types Packs/Day Years Used Date Smoking Tobacco: Never Assessed Comments Unknown Sex and Gender Information Value Date Recorded Sex Assigned at Not on file 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 Gender Identity Not on file Sexual Orientation Not on file documented as of this encounter Plan of Treatment Not on file documented as of this encounter Visit Diagnoses Diagnosis Unspecified hypothyroidism- Primary Other and unspecified hyperlipidemia documented in this encounter Additional Health Concerns Infection Onset Date Last Indicated Resolved Time R/O COVID-19 06/23/2020 06/23/2020 06/23/2020 1:54 PM CDT COVID-19 06/23/2020 06/23/2020 07/23/2020 8:08 PM DEPUTY PROSECUTING ATTORNEY documented as of this encounter Care Teams Tonnage Compilation Clerk Relationship Specialty Start Date End Date Gigi Garza MD [address] [address] PCP - General Family Practice 06/11/16 documented as of this encounter
--- OUTSIDE RECORDS SUMMARY | 2025-05-25 16:59 | XMS_ITS | Encounter Summary ---
Author Organization [facility] Address [address] [place] [address] Care Team Providers Care Culinary Artist Name Role Phone Gigi Garza MD Primary Care Provider [phone] Encounter Details Date Type Department Care Team (Latest Contact Info) Description 06/13/2001 Outpatient Historical [facility] Medicine [address] [address] Colin Marquez DO NO ADDRESS ON FILE Acute bronchitis (Primary Dx) Social History Tobacco Use Types Packs/Day Years Used Date Smoking Tobacco: Never Assessed Comments Unknown Sex and Gender Information Value Date Recorded Sex Assigned at Not on file Legal Sex Female 5:42 AM DIRECTOR GLOBAL Gender Identity Not on file Sexual Orientation Not on file documented as of this encounter Plan of Treatment Not on file documented as of this encounter Visit Diagnoses Diagnosis Acute bronchitis- Primary documented in this encounter Additional Health Concerns Infection Onset Date Last Indicated Resolved Time R/O COVID-19 06/23/2020 06/23/2020 06/23/2020 1:54 PM CDT COVID-19 06/23/2020 06/23/2020 07/23/2020 8:08 PM DIRECTOR GLOBAL documented as of this encounter Care Teams Culinary Artist Relationship Specialty Start Date End Date Gigi Garza MD [address] [address] PCP - General Family Practice 06/11/16 documented as of this encounter
--- OUTSIDE RECORDS SUMMARY | 2025-05-25 16:59 | XMS_ITS | Encounter Summary ---
Author Organization [facility] Address [address] [place] [address] Care Team Providers Care Processor Solid Propellant Name Role Phone Gigi Garza MD Primary Care Provider [phone] Encounter Details Date Type Department Care Team (Latest Contact Info) Description 05/21/2002 Outpatient Historical [facility] Medicine [address] [address] Colin Marquez DO NO ADDRESS ON FILE ACUTE BRONCHITIS (Primary Dx); DERMATITIS NOS Social History Tobacco Use Types Packs/Day Years Used Date Smoking Tobacco: Never Assessed Comments Unknown Sex and Gender Information Value Date Recorded Sex Assigned at Not on file Legal Sex Female 5:42 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 Gender Identity Not on file Sexual Orientation Not on file documented as of this encounter Plan of Treatment Not on file documented as of this encounter Visit Diagnoses Diagnosis Acute bronchitis- Primary Contact dermatitis and other eczema, due to unspecified cause documented in this encounter Additional Health Concerns Infection Onset Date Last Indicated Resolved Time R/O COVID-19 06/23/2020 06/23/2020 06/23/2020 1:54 PM CDT COVID-19 06/23/2020 06/23/2020 07/23/2020 8:08 PM FIRST AID INSTRUCTOR documented as of this encounter Care Teams Processor Solid Propellant Relationship Specialty Start Date End Date Gigi Garza MD [address] [address] PCP - General Family Practice 06/11/16 documented as of this encounter
--- OUTSIDE RECORDS SUMMARY | 2025-05-25 16:59 | XMS_ITS | Encounter Summary ---
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 Gender Identity Not on file Sexual Orientation Not on file documented as of this encounter Plan of Treatment Not on file documented as of this encounter Visit Diagnoses Not on filedocumented in this encounter Additional Health Concerns Infection Onset Date Last Indicated Resolved Time R/O COVID-19 06/23/2020 06/23/2020 06/23/2020 1:54 PM CDT COVID-19 06/23/2020 06/23/2020 07/23/2020 8:08 PM SOCK DRIER documented as of this encounter Care Teams Tailor Apprentice Relationship Specialty Start Date End Date Gigi Garza MD [address] [facility] [address] [place] [phone] PCP - General Family Practice 06/11/16 documented as of this encounter
--- OUTSIDE RECORDS SUMMARY | 2025-05-25 17:00 | XMS_ITS | Clinical Summary ---
Author Organization [facility] Address [address] [place] [address] Phone Care Team Providers Care Poultry Breeder Name Role Phone Gigi Garza MD Primary Care Provider [phone] Allergies Active Allergy Reactions Criticality Noted Date Comments Nsaids 12/18/2024 Kidney's Naproxen, ibuprofen Pravastatin Other (see comments) Low 03/17/2015 Medications Dulaglutide (Trulicity) 1.5 MG/0.5ML solution auto-injector Inject 1.5 mg under the skin once a week 1 Active Cholecalciferol 50 MCG (1999 UT) capsule Take 100 mcg by mouth in the morning. Active cinnamon 500 MG capsule Take 1 capsule by mouth in the morning. Active metFORMIN XR (GLUCOPHAGE-XR) 500 MG 24 hr tablet Take 500 mg by mouth in the morning. 4 Active ACIDOPHILUS LACTOBACILLUS PO Take 1 capsule by mouth 1 (one) time each day Active cetirizine (ZyrTEC ALLERGY) 10 MG tablet Take 10 mg by mouth in the morning. 8 Active Multiple Vitamin (Quintabs) tablet Take 1 tablet by mouth 1 (one) time each day Active Lowell-3 Fatty Acids (FISH OIL OMEGA-3 PO) Take 1 capsule by mouth 1 (one) time each day Active traMADol (ULTRAM) 50 MG tablet Take 50 mg by mouth every 12 hours as needed 1 Active Naloxone HCl 4 MG/0.1ML liquid Administer 1 spray in one nostril one time. May repeat in alternating nostril every 2-3 min until responsive or EMS arrives 5 Active ALPRAZolam (XANAX) 0.25 MG tablet Take 0.25 mg by mouth every 8 hours as needed 1 Active aspirin (ST GIGI) 81 MG EC tablet Take 81 mg by mouth in the morning. Active levothyroxine (SYNTHROID, LEVOTHROID) 50 MCG tablet Take 50 mcg by mouth in the morning. 1 Active DULoxetine (CYMBALTA) [address] capsule Take 30 mg by mouth in the morning. 1 Active rosuvastatin (CRESTOR) 5 MG tablet Take 5 mg by mouth 3 (three) times a week 1 Active metoprolol succinate XL (TOPROL XL) 25 MG 24 hr tablet Take 25 mg by mouth in the morning. 5 Active zinc sulfate (ZINCATE) 220 (50 Zn) MG capsule Take 50 mg by mouth in the morning. Active flecainide (TAMBOCOR) 50 MG tablet Take 50 mg by mouth Active lisinopril 20 MG tablet Take 20 mg by mouth 1 (one) time each day 5 Active diphenoxylate-atr opine (LOMOTIL) 2.5-0.025 MG per tablet Take 1 tablet by mouth 4 (four) times a day if needed for diarrhea Active Active Problems No known active problems Encounters Date Type Department Care Team Description 03/04/2025 Telephone [facility] [address] [facility] [address] [place] [address] Guerline Franklin MD from Last 3 Months Family History Medical History Relation Comments Lung cancer Brother Diabetes Mother Hypertension Sister Osteoarthritis Sister Relation Status Comments Brother Mother Sister Social History Tobacco Use Types Packs/Day Years Used Date Smoking Tobacco: Never Smokeless Tobacco: Never Tobacco Cessation:Counseling Given: Not Answered Alcohol Use Standard Drinks/Week Comments Not Currently 0 (1 standard drink = 0.6 oz pur e alcohol) Comments Unknown Sex and Gender Information Value Date Recorded Sex Assigned at Not on file Legal Sex Female 12:52 PM EDT Gender Identity Not on file Sexual Orientation Not on file Last Filed Vital Signs Vital Sign Reading Time Taken Comments Blood Pressure 132/70 12/19/2024 11:00 AM CDT Pulse 63 12/19/2024 11:00 AM CDT Temperature - - Respiratory Rate - - Oxygen Saturation 98% 12/19/2024 11:00 AM CDT Inhaled Oxygen Concentration - - Weight 69.2 kg (152 lb 9.6 oz) 12/19/2024 11:00 AM CDT Height 157.5 cm (5' 2 ) 12/19/2024 11:00 AM CDT Body Mass Index 27.91 12/19/2024 11:00 AM CDT Plan of Treatment Upcoming Encounters Date Type Department Care Team (Late st Contact Info) Description 06/18/2025 9:00 AM CDT Office Visit [facility] [address] [place] [address] Guerline Franklin MD [address] [facility] [address] [place] [address] Health Maintenance Due Date Last Done Comments Pneumococcal Vaccine: 50+ Years (2 of 2 - PCV) 06/16/2010 06/16/2009 Diabetes: Ophthalmology Exam 07/09/2024 Diabetes: Pedal Pulse Checked 07/09/2024 Diabetes: Sensory Foot Exam 07/09/2024 Diabetes: Visual Foot Exam 07/09/2024 Diabetes: Hemoglobin A1C 09/12/2024 024, 06/04/2024, 05/28/2024, Additional history exists Influenza Vaccine (#1) 2025 9, 05/25/2018, 06/21/2017, Additional history exists Hepatitis B Vaccine Aged Out No longe r eligible based on patient's age to complete this topic Insurance [facility] [place] [address] Care Teams Poultry Breeder Relationship Specialty Start Date End Date Gigi Garza MD [address] [address] PCP - General Family Medicine 12/18/24
--- OUTSIDE RECORDS SUMMARY | 2025-05-25 17:00 | XMS_ITS | Encounter Summary ---
[facility] Organization [facility] Address [address] [place] [address] Care Team Providers Care Implementation Project Coordinator Name Role Phone Gigi Garza MD Primary Care Provider [phone] Reason for Visit * Reason Onset Date Comments fax 07/06/2021 Encounter Details Date Type Department Care Team (Late Contact Info) Description 07/06/2021 Telephone [facility] Clin[facility] [address] [place] [phone] Gigi Garza MD [address] [facility] [address] [place] [phone] fax Social History Tobacco Use Types Packs/Day Years Used Date Smoking Tobacco: Former Cigarettes Smokeless Tobacco: Never Comments:Quit smoking: Quit smoking in her 30's Alcohol Use Standard Drinks/Week Comments No 0 (1 standard drink = 0.6 oz pur e alcohol) Comments No Sex and Gender Information Value Date Recorded Sex Assigned at Not on file Legal Sex Female 1:34 PM COOPER HELPER Gender Identity Not on file Sexual Orientation Not on file documented as of this encounter Miscellaneous Notes * Telephone Encounter - Sean Sargent - 07/06/2021 9:49 AM CDT Patient calling in today stating that she would like a phone call back from Bekah Fischer that the fax was wrong and needs a new fax sent over. Please call patient back at [phone]. documented in this encounter Plan of Treatment Upcoming Encounters Date Type Department Care Team (Late Contact Info) Description 06/21/2025 10:40 AM CDT Office Visit [facility] [address] [address] Gigi Garza MD [address] [place] [address] documented as of this encounter Visit Diagnoses Not on filedocumented in this encounter Care Teams Implementation Project Coordinator Relationship Specialty Start Date End Date Gigi Garza MD [address] [address] PCP - General Family Practice 07/11/24 documented as of this encounter
[2025-05-25 17:06] VITALS: BP 167/75; PULSE 78; RESP 14; TEMP 36.6; O2SAT 98
--- NOTE | 2025-05-25 19:13 | CTR_ITS ---
PROCEDURE INFORMATION: Exam: CT Maxillofacial Without Contrast Exam date and time: 05/25/2025 7:25 PM Age: 84 years old Clinical indication: Ground level fall. Left frontal laceration TECHNIQUE: Imaging protocol: Computed tomography of the face without contrast. Radiation optimization: All CT scans at this facility use at least one of these dose optimization techniques: automated exposure control; mA and/or kV adjustment per patient size (includes targeted exams where dose is matched to clinical indication); or iterative reconstruction. COMPARISON: CT head wo con* [id number] 05/25/2025 7:22 PM RADIATION DOSE METRICS: Total DLP (mGy-cm): 562.96 FINDINGS: Paranasal sinuses: No air-fluid levels. Small right maxillary mucous retention cyst Orbital cavities: Status post bilateral lens surgery. Orbits are otherwise unremarkable. Bones: No acute fracture. Soft tissues: Unremarkable. There is a laceration with small scalp hematoma overlying the left forehead. This is not fully included in the field of view. CT/CT facial bones wo con* [id number] IMPRESSION: 1. No facial bone fracture. 2. Laceration with small scalp hematoma overlying the left forehead
--- NOTE | 2025-05-25 19:13 | XRR_ITS ---
PROCEDURE INFORMATION: Exam: XR Left Wrist Exam date and time: 05/25/2025 7:31 PM Age: 84 years old Clinical indication: Injury or trauma; Blunt trauma (contusions or hematomas); Trip and fall onto concrete. C/O left wrist pain. TECHNIQUE: Imaging protocol: Radiologic exam of the left wrist. Views: 3 or more views. COMPARISON: No relevant prior studies available. FINDINGS: Bones/joints: Demineralization of the visualized bones, limiting sensitivity for nondisplaced fractures. 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 Moderate degenerative disease of the 1st carpometacarpal joint. Chondrocalcinosis of the TFC. Soft tissues: There is soft tissue swelling. XR/XR wrist LT min 3V* [id number] IMPRESSION: No acute fracture or dislocation.
--- NOTE | 2025-05-25 19:13 | CTR_ITS ---
PROCEDURE INFORMATION: Exam: CT Head Without Contrast Exam date and time: 05/25/2025 7:22 PM Age: 84 years old Clinical indication: Injury or trauma; Blunt trauma (contusions or hematomas); Fall face first onto concrete. Laceration to left frontal. ; Additional info: Fall with laceration TECHNIQUE: Imaging protocol: Computed tomography of the head without contrast. Radiation optimization: All CT scans at this facility use at least one of these dose optimization techniques: automated exposure control; mA and/or kV adjustment per patient size (includes targeted exams where dose is matched to clinical indication); or iterative reconstruction. COMPARISON: No relevant prior studies available. RADIATION DOSE METRICS: Total DLP (mGy-cm): 1084.8 FINDINGS: Brain: Age-related brain parenchymal atrophy. Areas of hypoattenuation in the periventricular and subcortical deep white matter likely on the basis of chronic microvascular ischemic changes. No acute intra cranial hemorrhage. No mass effect or midline shift. No definitive CT evidence of acute territorial infarction. Cerebral ventricles: No ventriculomegaly. Paranasal sinuses: Visualized sinuses are unremarkable. No fluid levels. Mastoid air cells: Visualized mastoid air cells are well aerated. Bones: Intact calvarium. Frontal scalp swelling. Soft tissues: Unremarkable. CT/CT head wo con* [id number] IMPRESSION: No acute intracranial abnormality. Senescent changes.
--- NOTE | 2025-05-25 19:13 | XRR_ITS ---
PROCEDURE INFORMATION: Exam: XR Right Shoulder Exam date and time: 05/25/2025 7:33 PM Age: 84 years old Clinical indication: Injury or trauma; Blunt trauma (contusions or hematomas); Right; Trip and fall onto concrete. C/O RT shoulder pain. ; Additional info: Fall with injury TECHNIQUE: Imaging protocol: Radiologic exam of the right shoulder. Views: 2 or more views. COMPARISON: MR shoulder RT wo con* [id number] 12/19/2018 4:27 PM FINDINGS: Bones/joints: Mild degenerative disease of the right acromioclavicular joint. There are mild degenerative changes in the right glenohumeral joint. There is a 4 mm right acromial spur. The thoracic spine demonstrates mild degenerative changes at multiple levels. Vasculature: There are aortic arch calcifications. Soft tissues: Normal. XR/XR shoulder RT min 2V* [id number] IMPRESSION: No acute fracture or dislocation.
--- NOTE | 2025-05-25 19:13 | CTR_ITS ---
PROCEDURE INFORMATION: Exam: CT Cervical Spine Without Contrast Exam date and time: 05/25/2025 7:27 PM Age: 84 years old Clinical indication: ground level fall TECHNIQUE: Imaging protocol: Computed tomography of the cervical spine without contrast. Radiation optimization: All CT scans at this facility use at least one of these dose optimization techniques: automated exposure control; mA and/or kV adjustment per patient size (includes targeted exams where dose is matched to clinical indication); or iterative reconstruction. COMPARISON: CT facial bones wo con* [id number] 05/25/2025 7:25 PM RADIATION DOSE METRICS: Total DLP (mGy-cm): 292.07 FINDINGS: Bones: No acute fracture. Normal alignment. Multilevel degenerative changes of the cervical spine with facet arthropathy with facet effusions at multiple levels, uncovertebral hypertrophy and multilevel disc height loss with posterior disc osteophyte complexes. There is up to moderate spinal canal narrowing at the C6-C7 level. There is up to severe neural foraminal narrowing at the right C3-C4 and right C4-C5 neural foramen. Calcification posterior to the dens likely reflecting calcium pyrophosphate deposition. Lungs: Lung apices are normal. Soft tissues: Unremarkable. CT/CT cervical spin wo con* [id number] IMPRESSION: No acute cervical spine fracture.
--- NOTE | 2025-05-25 19:48 | W.ED.WOUNDLC ---
HPI - Wound/Laceration General: Chief Complaint: Wound/Laceration Stated Complaint: fall / head lac Time Seen by Provider: 05/25/25 19:13 History of Present Illness: Patient is 84-year-old female that presents to the emergency room with a fall and landing on her forehead and nose just prior to admission. She was going to get her hair done, and there was a transition from the decorative gravel to the sidewalk, where she thinks she got her toe caught and landed directly on the sidewalk. She has a large laceration in the middle of her left forehead, ecchymosis to her nose with diagonal alignment of her nose, left wrist pain, and right shoulder pain. She does not remember putting her arms out. Tetanus is not up-to-date. Associated symptoms: Denies chills, fever(s), nausea or vomiting Related Data Home Medications ?Medication ?Instructions ?Recorded ?Confirmed alprazolam 0.25 mg tablet 0.25 mg PO DAILY PRN 08/15/24 05/02/25 conjugated estrogens 0.625 mg/gram 0.625 mg vaginal DAILY 08/15/24 05/02/25 vaginal cream (Premarin) diphenoxylate-atropine 2.5 1 tab PO QID PRN 08/15/24 05/02/25 mg-0.025 mg tablet dulaglutide 1.5 mg/0.5 mL mg SUBCUT 08/15/24 05/02/25 subcutaneous pen injector (Trulicity) duloxetine 30 mg capsule,delayed 30 mg PO 08/15/24 05/02/25 release levothyroxine 50 mcg tablet 50 mcg PO 08/15/24 05/02/25 lisinopril 20 mg tablet 20 mg PO 08/15/24 05/02/25 metformin 500 mg tablet,extended 500 mg PO 08/15/24 05/02/25 release 24 hr metoprolol succinate 25 mg 25 mg PO 08/15/24 05/02/25 tablet,extended release 24 hr nystatin 100,000 unit/gram topical 1 applic topical 08/15/24 05/02/25 cream rosuvastatin 10 mg tablet 10 mg PO 08/15/24 05/02/25 tramadol 50 mg tablet 50 mg PO Q6H PRN 08/15/24 05/02/25 Previous Rx's ?Medication ?Instructions ?Recorded blood-glucose sensor (FreeStyle #2 ea 10/23/24 Tommy 3 Plus Sensor device) tolnaftate 1 % topical solution 1 drp topical BID #7.5 mL 02/26/25 (Tolcylen) Diabetic Shoes with 3 pairs of #1 ea 05/03/25 inserts cephalexin 500 mg capsule 500 mg PO BID 3 days #6 caps 05/25/25 Allergies Allergy/AdvReac Type Severity Reaction Status Date / Time No Known Allergies Allergy Verified 05/25/25 17:12 Review of Systems General: Reports: 10 or more systems reviewed and unremarkable except in HPI and below Const: Denies: fever(s) or chills Eyes: Denies: change in vision or eye redness ENMT: Denies: disequilibrium or epistaxis Card: Reports: swelling of feet/ankles and leg pain with exertion; Denies: chest pain or palpitations Resp: Denies: dyspnea GI: Denies: nausea or vomiting : Denies: hematuria Musc: Reports: extremity pain; Denies: neck pain, back pain or extremity swelling Skin/Breast: Reports: dry skin, nail changes and change in hair Neuro: Reports: headache(s); Denies: numbness in extremities, sensory changes, lack of coordination, difficulty walking, frequent falls, dizziness, vertigo or confusion Psych: Denies: suicidal ideation or homicidal ideation Endo: Reports: cold intolerance Sebas/Lymph: Reports: easy bleeding; Denies: easy bruising PFS ED PFSH: Social History Smoking and tobacco/nicotine status: never used tobacco/nicotine Physical Exam Const: COMMON NORMALS: no acute distress, average body habitus and patient oriented x3 HENMT: COMMON NORMALS: Normal external nose present; head/scalp not atraumatic (Traumatic areas noted) HEAD & SCALP: not atraumatic (Traumatic areas noted) FACE & SINUS: sinuses nontender; facial exam not normal and face not symmetric FACE & SINUS IMAGES:  1. 6.5 cm laceration 2. ecchymosis NOSE: Normal external nose present and Normal nares present Eye: COMMON NORMALS: Equal, round and reactive pupils present and EOMs intact bilaterally PUPIL: Yes Equal, round and reactive pupils present Neck/C-Spine: COMMON NORMALS: full ROM and no lymphadenopathy Lymph: LYMPHATIC: no lymphadenopathy noted Chest: COMMONS NORMALS: normal inspection of the chest Resp: COMMON NORMALS: normal respiratory effort, No retractions and clear to auscultation bilaterally AUSCULTATION: clear to auscultation bilaterally Cardio: COMMON NORMALS: regular rate and regular rhythm RATE: regular rate RHYTHM: regular rhythm GI: COMMON NORMALS: Normal to inspection, nondistended, normoactive bowel sounds present, Soft to palpation, non-tender and No hepatosplenomegaly present PALPATION: Yes Soft to palpation and Yes No hepatosplenomegaly present : COMMON NORMALS: Yes no CVA tenderness BLADDER/KIDNEY EXAM: Yes no CVA tenderness Back/Pelvis: COMMON NORMALS: no CVA tenderness Extremity: COMMON NORMALS: normal to inspection, full ROM and capillary refill normal Neuro: COMMON NORMALS: patient oriented x3 Psych: COMMON NORMALS: mental status grossly normal, Normal thought process present, cooperative, normal affect and speech normal SPEECH: Yes normal speech THOUGHT PROCESS: Normal thought process present Skin: COMMON NORMALS: no rashes or lesions noted, no wounds and turgor normal GENERAL SKIN EXAM: no rashes or lesions noted and turgor normal Procedures Laceration Laceration 1: Site: face Side (If applicable): left Size (cm): 6.5 Description: flap, irregular and clean Depth: simple, single layer and involves muscle layer Local Anesthetic: lidocaine 1% and with epi Amount of anesthesia used (mL): 5 Pre-repair: wound explored, irrigated extensively, deep structures intact and wound margins revised Skin layer closed with: nylon Size (cm): 4-0 Number of sutures: 7 Technique: simple, interrupted Subcutaneous layer closed with: vicryl Size: 3-0 Number of sutures: 2 Technique: simple, interrupted Course Vital Signs: Vital signs: Vital Signs Temperature 97.9 F 05/25/25 17:06 Pulse Rate 74 05/25/25 22:39 Respiratory Rate 14 05/25/25 17:06 Blood Pressure 150/82 05/25/25 22:39 Pulse Oximetry 93 05/25/25 22:39 Oxygen Delivery Me thod Room Air 05/25/25 17:06 MDM - Wound/Laceration Medical Decision Making Is an 84-year-old female that had a fall on loose gravel when transitioning from loose gravel to the sidewalk, landing directly on the left side of her face. She had a large laceration that was irregular. She required some revision of margin, Vicryl sutures inside her forehead x 2, and 7 sutures externally. I have discussed with her to remove in 5-7 days, and antibiotics at the pharmacy. Daughters were present and very helpful. She appears to have a good support system. This does not appear to be anything other than a trip and fall while she was going to get her hair done. Her shoulder is negative, wrist is negative, CT head, neck, face are all negative for acute fracture. She is quite happy that she is a shilpi/blessed woman without a fracture today and a laceration was the only outcome. Lab Data Radiology Impressions Cervical Spine CT 05/25/25 19:13 IMPRESSION: No acute cervical spine fracture. Face CT 05/25/25 19:13 IMPRESSION: 1. No facial bone fracture. 2. Laceration with small scalp hematoma overlying the left forehead Head CT 05/25/25 19:13 IMPRESSION: No acute intracranial abnormality. Senescent changes. Shoulder X-Ray 05/25/25 19:13 IMPRESSION: No acute fracture or dislocation. Wrist X-Ray 05/25/25 19:13 IMPRESSION: No acute fracture or dislocation. All radiology interpretation(s) finalized by discharge Discharge Plan Discharge Patient Disposition: Home Clinical Impression: Laceration Concussion Qualifiers: Encounter type: initial encounter Loss of consciousness presence/duration: without LOC Qualified Code(s): S06.0X0A - Concussion without loss of consciousness, initial encounter Condition: Stable Prescriptions: New cephalexin 500 mg capsule 500 mg PO BID 3 Days Qty: 6 0RF No Action tolnaftate [Tolcylen] 1 % solution 1 drp topical BID Qty: 7.5 0RF Rx Instructions: rub into affected area duloxetine 30 mg capsule,delayed release(DR/EC) 30 mg PO rosuvastatin 10 mg tablet 10 mg PO metformin 500 mg tablet extended release 24 hr 500 mg PO metoprolol succinate 25 mg tablet extended release 24 hr 25 mg PO nystatin 100,000 unit/gram cream 1 applic topical levothyroxine 50 mcg tablet 50 mcg PO lisinopril 20 mg tablet 20 mg PO Premarin 0.625 mg/gram cream 0.625 mg vaginal DAILY Rx Instructions: off 5 days; repeat cycle Trulicity 1.5 mg/0.5 mL pen injector SUBCUT diphenoxylate-atropine 2.5-0.025 mg tablet 1 tab PO QID PRN tramadol 50 mg tablet 50 mg PO Q6H PRN alprazolam 0.25 mg tablet 0.25 mg PO DAILY PRN (DME) FreeStyle Tommy 3 Plus Sensor Device See Rx Instructions .Route Qty: 2 3RF Rx Instructions: change sensor every 15 days (DME) Diabetic Shoes with 3 pairs of inserts See Rx Instructions .Route .MEDSUPPLY Qty: 1 0RF Rx Instructions: As directed by Daily Living Medical Discharge Orders: Discharge ED (Routine); Ordered 05/25/25 Ordered By: Nereyda Forrest Referrals: Gigi Garza [Primary Care Provider, Family Practice] Discharge Diet: Usual diet Discharge Activity: Resume usual activity and Use walker/crutches as instructed Patient Instructions: Laceration (ED), Concussion (ED), Patient Portal & Len Instructions Activity Restrictions/Additional Instructions: - Tylenol and ibuprofen for pain work best and will not cause your gait to be unsteady. Ice helps with pain. You may put ice on your head with a barrier. - As we discussed remove the sutures in 5-7 days. There is a total of 7 of them. - Wound care: You want to wash this area daily with like an antibacterial soap such as Dial, or pHisoDerm. This will start tomorrow. Place triple antibiotic ointment for 24 hours, then utilize Vaseline directly on the wound or Vaseline gauze, and cover. Make sure it is at least open daily and wash. After 48 hours, you may leave this area open. - Antibiotics were sent to the pharmacy for prophylaxis. You may utilize active culture yogurt or probiotic to avoid infectious diarrhea -Localized redness is common, however when this is caused by streaking, increasing redness, fever greater than 100.4 ?F, is important to come back to the ED. - Remove sutures in 5-7 days as we discussed. 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
[2025-05-25] MEDS: tetanus-dipt-pertussis 0.5 mL SDV IM (20:00)
[2025-05-25] MEDS: HYDROcodone-acetaminophen 10-325 mg Tablet 1 TAB PO (21:13)
[2025-05-25] MEDS: lidocaine-epi 1% 20 mL INJ INJECTION (21:37)
[2025-05-25 22:39] VITALS: BP 150/82; PULSE 74; O2SAT 93
== END 2025-05-25 22:46 | disposition home or self-care (01) ==
PROVIDERS: Emergency Provider Physician Assistant; PCP Family Medicine
DX: S01.81XA Laceration without foreign body of other part of head, initial encounter (principal); S06.0X0A Concussion without loss of consciousness, initial encounter; Z79.84 Long term (current) use of oral hypoglycemic drugs; Z79.85 Long-term (current) use of injectable non-insulin antidiabetic drugs; W19.XXXA Unspecified fall, initial encounter
CPT/HCPCS: 12053; 70450; 70486; 72125; 73030; 73110; 90715; 99284; J9999

== ENCOUNTER 2025-05-30 10:06 | Outpatient (CLI) | payer MEDICARE, SELFPAY ==
[2025-05-30 11:47] LABS: Estmated Average Glucose 160; Hemoglobin A1C 7.2 % (4.0-6.0)
[2025-05-30 12:03] LABS: Creatinine Urine, Random 117 mg/dL (28-217); Microalbum Creatinine Ratio Ur 34 mg/dL (0-20)
[2025-05-30 12:04] LABS: Alanine Aminotransferase 15 U/L (0-33); Albumin Level 4.4 g/dL (3.5-5.2); Alkaline Phosphatase 78 U/L (35-105); Anion Gap 18.1 (5-19); Aspartate Amino Transferase 21 U/L (0-32); Blood Urea Nitrogen 15 mg/dL (8-23); Calcium 10.1 mg/dL (8.5-10.5); Carbon Dioxide 26 mmol/L (22-29); Chloride 100 mmol/L (98-107); Cholesterol 269 mg/dL (0-200); Free T4 Free Thyroxine 1.41 ng/dL (0.82-1.77); Globulin 3.6 g/dL (1.3-4.6); Glucose 179 mg/dL (65-115); HDL Cholesterol 58 mg/dL (60-100); Osmolality Calculated 293 mOsm/kg (285-295); Potassium 5.1 mmol/L (3.5-5.1); Sodium 139 mmol/L (136-145); Thyroid Stimulating Hormone 2.66 uIU/mL (0.27-4.20); Total Protein 8.0 g/dL (6.6-8.7); Triglycerides 167 mg/dL (0-150)
== END 2025-05-30 10:07 | disposition home or self-care (01) ==
PROVIDERS: PCP Family Medicine; Visit Provider Internal Medicine
DX: E11.9 Type 2 diabetes mellitus without complications (principal); E03.9 Hypothyroidism, unspecified
CPT/HCPCS: 36415; 80053; 80061; 82044; 83036; 84439; 84443

== ENCOUNTER → 2025-06-05 09:39 | Outpatient (BNVA) | payer MEDICARE, SELFPAY | PROVIDERS: PCP Family Medicine; Visit Provider Internal Medicine | DX: E11.9 Type 2 diabetes mellitus without complications (principal); E03.9 Hypothyroidism, unspecified; T78.40XA Allergy, unspecified, initial encounter; X58.XXXA Exposure to other specified factors, initial encounter | CPT/HCPCS: 99214 ==

== ENCOUNTER 2025-06-11 08:56 | Outpatient (CLI) | payer MEDICARE, SELFPAY ==
[2025-06-11 10:25] LABS: Hematocrit 38.3 % (36-47); Hemoglobin 12.30 g/dL (11.27-16.99); Mean Corpuscular HGB Conc 32.1 g/dL (30-55); Mean Corpuscular Hemoglobin 29.9 pg (27-33); Mean Corpuscular Volume 93.0 fl (85-98); Nucleated Red Blood Cells % 0 %; Platelet Count 233 10^3/cmm (157-399); Red Blood Count 4.12 10^6/uL (3.85-5.65); White Blood Count 6.55 10^3/uL (3.29-11.43)
[2025-06-11 10:41] LABS: Estmated Average Glucose 166; Hemoglobin A1C 7.4 % (4.0-6.0)
[2025-06-11 10:44] LABS: Alanine Aminotransferase 13 U/L (0-33); Albumin Level 4.1 g/dL (3.5-5.2); Alkaline Phosphatase 67 U/L (35-105); Anion Gap 16.6 (5-19); Aspartate Amino Transferase 23 U/L (0-32); Blood Urea Nitrogen 21 mg/dL (8-23); Calcium 9.7 mg/dL (8.5-10.5); Carbon Dioxide 25 mmol/L (22-29); Chloride 101 mmol/L (98-107); Globulin 3.1 g/dL (1.3-4.6); Glucose 167 mg/dL (65-115); Osmolality Calculated 293 mOsm/kg (285-295); Potassium 4.6 mmol/L (3.5-5.1); Sodium 138 mmol/L (136-145); Total Protein 7.2 g/dL (6.6-8.7)
[2025-06-11 10:51] LABS: Albumin Level 4.2 g/dL (3.5-5.2); Anion Gap 15.4 (5-19); Blood Urea Nitrogen 20 mg/dL (8-23); Calcium 9.7 mg/dL (8.5-10.5); Carbon Dioxide 25 mmol/L (22-29); Chloride 102 mmol/L (98-107); Glucose 155 mg/dL (65-115); Potassium 4.4 mmol/L (3.5-5.1); Sodium 138 mmol/L (136-145)
[2025-06-11 10:52] LABS: Calcium 9.8 mg/dL (8.5-10.5)
[2025-06-11 10:58] LABS: Creatinine Urine, Random 128 mg/dL (28-217); Microalbum Creatinine Ratio Ur 16 mg/dL (0-20)
== END 2025-06-11 08:57 | disposition home or self-care (01) ==
PROVIDERS: PCP Family Medicine; Visit Provider Internal Medicine Nephrology
DX: N18.31 Chronic kidney disease, stage 3a (principal); E11.22 Type 2 diabetes mellitus with diabetic chronic kidney disease
CPT/HCPCS: 36415; 80053; 80069; 82044; 82306; 82310; 83036; 83970; 85025

== ENCOUNTER → 2025-07-11 09:21 | Outpatient (BNVA) | payer MEDICARE, SELFPAY | PROVIDERS: PCP Family Medicine; Visit Provider Podiatrist Foot & Ankle Surgery | DX: E11.8 Type 2 diabetes mellitus with unspecified complications (principal); L60.3 Nail dystrophy; E11.42 Type 2 diabetes mellitus with diabetic polyneuropathy; I73.9 Peripheral vascular disease, unspecified; Z79.84 Long term (current) use of oral hypoglycemic drugs | CPT/HCPCS: 11721 ==